=== PATIENT | female | born 1990 | race Asian ===

== ENCOUNTER 2023-09-27 08:55 | Outpatient (AMB) | payer OTHER, SELFPAY ==
--- NOTE | 2023-09-27 08:56 | A.OFFPC_ITS ---
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 Accompanied by: Self / Same As Patient Allergies No Known Allergies Allergy (Verified 09/27/23 09:12) Medication List - Last Reconciled 09/27/23 by Dank Jones MD No Known Home Meds Tobacco use date assessed: 09/27/23 Dental Screening Dental Screen Date: 09/27/23 Did you have a dental visit in the last 12 months?: No Did you have a dental problem in the last 6 months where you did not have access to dental care?: No Was dental information given to patient?: No HPI New patient- Establish Care HPI Details Patient comes in today for her annual physical examination and to establish care - is a new patient to the practice Patient states that she feels fatigued often lately Relates (+) Hx hypothyroidism - states that she has not taken any Rx for her thyroid in over a year now, and the last time she did was when she was still living in [place] about 2 years ago Also relates (+) recurrent whitish vaginal discharge recently; denies any vaginal bleeding and states that her menstrual periods have been regular She also has not seen a software quality assurance specialist and has 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 had 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 in a few years now States that she started experiencing some cough/cold symptoms last week and presently still has on and off symptoms of productive cough (coughs up whitish to yellowish phlegm at times), nasal and sinus congestion and mild sore throat She denies any fever or chills; denies any headaches or dizziness States that she tested herself for COVID a few days ago and she came out negative Adds that she also has had a recurrent and itchy rash over the back of her neck at the (occipital) hair line - states that she's had this for a few years now and has tried several OTC eczema cream / lotion without any significant improvement She denies any chest pains, no SOB No nausea/vomiting, no abdominal pain No change in bowel habits noted She denies any acute urinary symptoms [facility] Medical History (Updated 09/27/23 @ 12:12 by Dank Jones MD) Atopic dermatitis Goiter Surgical History (Updated 09/27/23 @ 11:56 by Dank Jones MD) No pertinent past surgical history Social History Housing: Apartment Patient Tobacco Use Status: Never used Tobacco e-Cigarette/Vaping Use: Never Used service: No Current occupational status: employed Current occupational exposures/hazards: No Cognitive needs: No Hearing needs: No Vision needs: No Questionnaire PHQ-9 Over the last 2 weeks, how often have you been bothered by any of the following problems? 1. Little interest or pleasure in doing things: not at all 2. Feeling down, depressed, or hopeless: not at all 3. Trouble falling or staying asleep, or sleeping too much: not at all 4. Feeling tired or having little energy: not at all 5. Poor appetite or overeating: not at all 6. Feeling bad about yourself - or that you are a failure or have let yourself or your family down: not at all 7. Trouble concentrating on things, such as reading the newspaper or watching television: not at all 8. Moving or speaking so slowly that other people could have noticed. Or the opposite - being so fidgety or restless that you have been moving around a lot more than usual: not at all 9. Thoughts that you would be better off or of hurting yourself in some way: not at all Total score: 0 Depression Screening Interpretation: Negative Depression Screening Done: Yes [id number] - PHQ-9 Billing: Yes Source: Developed by Drs. Rubio Ge, Joan Koehler, Mark Wilson and colleagues, with an educational alanis from [employer]. Thrive Questionnaire Date Thrive assessed: 09/27/23 I am a: Patient What is your living situation today?: I have a steady place to live Within the past 12 months, did the food you bought not last and you didn't have the money to get more?: Never true Within the past 12 months, did you worry whether your food would run out before you got money to buy more?: Never true Do you have trouble paying for medicines?: No Do you have trouble getting transportation to medical appointments?: No Do you have trouble paying your heating and electricity bill?: No Do you have trouble taking care of your child, family member or friend?: No Do you have trouble with day-to-day activities such as bathing, preparing meals, shopping, managing finances, etc.?: No Are you currently unemployed and looking for a job?: No Are you interested in more education?: No Please select the resources that you would like help with: None Currently or been in a relationship where the following occur: no concerns reported THRIVE Score: 0 AUDIT C Alcohol Use Questionnaire (AUDIT-C) 1. How often do you have a drink containing alcohol?: Monthly or less 2. How many drinks containing alcohol do you have on a typical day when you are drinking?: 1 or 2 3. How often do you have six or more drinks on one occasion?: Never Total Score: 1 Score Reviewed/Action Taken: Yes BANG-7 AMB Questionnaire BANG-7 Date BANG - 7 assessed: 09/27/23 Feeling nervous, anxious, or on edge: 0 = Not at all Not being able to stop or control worryin = Not at all Worrying too much about different things: 0 = Not at all Trouble relaxin = Not at all Being so restless that it is hard to sit still: 0 = Not at all Becoming easily annoyed or irritable: 0 = Not at all Feeling afraid as if something awful might happen: 0 = Not at all Total BANG-7 score (0-4 normal; 5-9 mild; 10-14 moderate; 15-21 severe): 0 Source: Developed by Drs. Rubio Ge, Joan Koehler, Mark Wilson and colleagues, with an educational alanis from [employer]. Review of Systems Const Denies chills, Reports fatigue (increased), Denies fever(s), Denies headache(s) and Denies malaise Eyes Denies blurry vision, Denies change in vision, Denies irritation and Denies itchy eyes ENT Denies dysphagia, Denies dizziness, Denies otalgia, Denies headache(s), Reports nasal congestion, Denies neck pain, Denies odynophagia, Denies sinus pain and Denies sore throat Card Denies chest pain, Denies rapid heart rate, Denies irregular heart rhythm, Denies palpitations and Denies dyspnea Resp Reports chest congestion (mild), Reports cough (on and off - coughs up whitish to yellowish phlegm at times), Denies pain on inspiration, Denies pain with cough, Denies dyspnea and Denies wheezing GI Denies abdominal pain, Denies bloating, Denies constipation, Denies dysphagia, Denies heartburn, Denies diarrhea, Denies nausea, Denies odynophagia and Denies vomiting Denies abnormal menses, Denies hematuria, Denies urinary frequency, Denies dysuria, Denies urinary incontinence, Denies urinary urgency, Reports vaginal discharge (whitish discharge - recurrent) and Denies vaginal pruritus Musc Denies back pain, Denies arthralgias, Denies joint swelling, Denies muscle weakness and Denies neck pain Skin/Breast Denies breast pain, Denies breast mass, Denies change in pigmentation, Denies lesions, Reports rash (recurrent itchy rash over the back of neck along the hairline) and Denies unusual bruising Neuro Denies dizziness, Denies headache(s) and Denies paresthesias Psych Denies anxiety and Denies depression Endo Reports fatigue (increased) and Denies palpitations Noé/Lymph Denies easy bruising Aller/Immun Denies itchy eyes and Denies wheezing Physical exam (Primary Care) Vital Signs: Last Vital Signs Pulse 75 09/27/23 08:59 BP 100/68 09/27/23 08:59 Pulse Ox 98 09/27/23 08:59 Oxygen Delivery Method Room Air 09/27/23 08:59 BMI result Body Mass Index 21.5 Tobacco/Smoking Status: Tobacco use Status Tobacco use date assessed 09/27/23 09/27/23 09:05 Patient Tobacco Use Status Never used Tobacco 09/27/23 09:05 e-Cigarette/Vaping Use Never Used 09/27/23 09:05 PHQ-9: PHQ-9 Score PHQ-9: Total score 0 09/27/23 09:15 Depression Screening Interpretation: Negative Thrive Assessment: Date of Thrive Assessment Date Thrive assessed 09/27/23 09/27/23 09:05 Currently or been in a relationship where the following occur: no concerns reported Const General: no acute distress, alert and awake Orientation/consciousness: patient oriented x3 HENMT Head: Yes normocephalic and Yes atraumatic Ears: external ears normal, TM's normal bilaterally and EAC's normal General nose exam: No nasal discharge present Face and sinus: Yes normal facial exam and Yes sinuses nontender Teeth and gingiva: dentition normal Throat: Yes tonsils normal (no TP congestion) and Yes posterior oropharynx abnormal ((+) mild erythema of the posterior pharynx) Eyes Eyelids: Yes eyelids normal Conjunctivae: conjunctivae normal Pupils: Equal, round and reactive pupils present EOM: EOMs intact bilaterally Neck Neck: Yes no lymphadenopathy and Yes supple Thyroid: diffusely enlarged (bilaterally) and nontender Resp Auscultation: clear to auscultation bilaterally, no crackles, no rales, rhonchi (scattered ) throughout and no wheezes Cardio Rate: regular rate Rhythm: regular rhythm Heart sounds: no murmurs GI Palpation (GI): Soft to palpation, nontender and No hepatosplenomegaly present Auscultation: normal bowel sounds General: Yes no CVA tenderness Back/Spine/Pelvis Back: no CVA tenderness Thoracic/Lumbar Spine: thoracic and lumbar spine normal to inspection Skin Lesions: no lesions Rashes: rashes noted (recurrent rash at hairline over the back of her neck) Neuro General: patient oriented x3, moves all extremities, no focal motor deficits and CN's II-XI intact bilaterally Cranial nerves: Yes Equal, round and reactive pupils present Cognition (Neuro): normal cognition Gait exam (Neuro): Normal gait present Extrem General: Yes no clubbing, cyanosis or edema Assessment and Plan Assessment & Plan (1) Annual physical exam: Code(s): Z00.00 - Encounter for general adult medical examination without abnormal findings Plan: Check labs (2) Goiter: Code(s): E04.9 - Nontoxic goiter, unspecified Plan: Patient is advised that based on the information she has provided, she most likely has hypothyroidism Will send her to check her TFTs KAMRAN and depending on her results, will then go ahead and start her back on thyroid hormone supplements as appropriate Advised her that her thyroid gland is also diffusely enlarged on exam and she should get an updated US of her thyroid for further evaluation - US ordered Patient recalls having a thyroid US done years ago but thinks that it has been over 3 to 4 years now and recalls being advised that there were no concerning findings on her last sonogram (3) Atopic dermatitis: Code(s): L20.9 - Atopic dermatitis, unspecified Qualifiers: Atopic dermatitis type: unspecified Qualified Code(s): L20.9 - Atopic dermatitis, unspecified Plan: Advised that the rash on her scalp appears to be eczematous and will start her for now on a trial of Triamcinolone acetonide 0.1% lotion BID PRN Will consider referring her to dermatology for further evaluation and management if her rash does not respond to and clear up with topical steroids (4) Vaginal discharge: Code(s): N89.8 - Other specified noninflammatory disorders of vagina Plan: States that it has also been a few years now since she last had her gynecologic exam and pap smear done Will refer her to [facility] for both her vaginal discharge and her annual exam (5) Respiratory tract infection: Code(s): J98.8 - Other specified respiratory disorders Plan: Discussed that she most likely has a viral respiratory tract infection and can continue taking OTC cough/cold meds PRN for symptomatic relief As she is going to the lab to get her routine tests done, will also go ahead and have her get tested for the viral panel for confirmation Plan Follow up in 3 months Orders: Orders Vitamin D 25-OH Total Today E55.9 - Vitamin D deficiency, unspecified, Z00.00 - Encounter for general adult medical examination without abnormal findings Free T4 (Free Thyroxine) Today E03.9 - Hypothyroidism, unspecified US thyroid Today E04.9 - Nontoxic goiter, unspecified Complete Blood Count Auto Diff Today D64.9 - Anemia, unspecified, Z00.00 - Encounter for general adult medical examination without abnormal findings Comprehensive [place]. 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
[2023-09-27 08:59] VITALS: BP 100/68; PULSE 75; O2SAT 98; BMI 21.5
== END 2023-09-27 09:53 | disposition home or self-care (01) ==
PROVIDERS: PCP Internal Medicine; Visit Provider Internal Medicine
DX: Z00.00 Encounter for general adult medical examination without abnormal findings (principal); E04.9 Nontoxic goiter, unspecified; L20.9 Atopic dermatitis, unspecified; N89.8 Other specified noninflammatory disorders of vagina; J98.8 Other specified respiratory disorders
CPT/HCPCS: 99385

== ENCOUNTER 2023-09-27 10:01 | Outpatient (REF) | payer OTHER, SELFPAY ==
[2023-09-27 10:33] LABS: MANUAL DIFF FLAG NO
[2023-09-27 11:13] LABS: Influenza A PCR NEGATIVE (Negative); Influenza B PCR NEGATIVE (Negative); Resp Syncy Virus RNA Qual PCR NEGATIVE (Negative); SARS COV2 PCR INHOUSE NEGATIVE (Negative)
[2023-09-27 11:29] LABS: Basophils Absolute Auto 0.1 X10*3/uL (0.0-0.2); Basophils Percent Auto 0.8 % (0-2); Eosinophils Absolute Auto 0.2 X10*3/uL (0.0-0.4); Eosinophils Percent Auto 2.1 % (0-4); Hematocrit 38.6 % (37.0-47.0); Imm Gran Abs Auto 0.13 X10*3/uL (0.00-0.03); Imm Gran Pct Auto 1.5 % (0.0-0.4); Lymphocytes Percent Auto 22.8 % (20-40); Mean Corpuscular HGB Conc 33.7 g/dl (31.0-35.0); Mean Corpuscular Volume 89.1 fL (80.0-98.0); Mean Platelet Volume 9.7 fL (9.4-12.3); Monocytes Absolute Auto 0.5 X10*3/uL (0.1-1.2); Monocytes Percent Auto 5.7 % (2-11); Neutrophils Absolute Auto 5.8 x10*3/uL (2.0-8.3); Neutrophils Percent Auto 67.1 % (45-73); Platelet Count 287 X10*3/uL (160-400); Red Blood Count 4.33 X10*6/uL (4.20-5.50); Red Cell Distribution Width 11.2 % (11.0-16.0); White Blood Count 8.6 X10*3/uL (4.8-10.8)
[2023-09-27 12:10] LABS: Appearance Urine Clear; Color Urine Yellow; Glucose Urine UA Negative (Negative); Leukocyte Esterase Urine Small (1+) (Negative); Nitrite Urine Negative (Negative); Specific Gravity - Urine <= 1.005 (1.005-1.025); UMIC TRIGGER UACC YES; Urine Blood Negative (Negative); Urine Ketones Negative (Negative); Urine Protein Negative (Neg-Trace)
[2023-09-27 12:17] LABS: Bacteria Urine None Seen (None Seen); Hyaline Casts Urine 0-2 /LPF (0-2); RBC Urine 0-2 /HPF (0-2); UACC Culture Trigger YES
[2023-09-27 12:27] LABS: Alanine Aminotransferase 22 U/L (0-31); Albumin Level 4.1 g/dL (3.5-5.0); Alkaline Phosphatase 83 U/L (39-117); Anion Gap 13 (12-20); Aspartate Amino Transferase 26 U/L (5-31); Bilirubin Total 0.5 mg/dL (0.0-1.0); Blood Urea Nitrogen 8 mg/dL (9-16); Calcium 9.1 mg/dL (8.4-10.2); Carbon Dioxide 30 mmol/L (22-29); Chloride 102 mmol/L (96-108); Cholesterol 169 mg/dL (<200); Estimated Glomerular Filt Rate > 60; Glucose Fasting 90 mg/dL (60-99); HDL Cholesterol 47 mg/dL (>40); LDL Cholesterol Calculated 112 mg/dL (<100); Potassium 3.8 mmol/L (3.3-5.1); Sodium 141 mmol/L (135-145); Total Protein 7.5 g/dL (6.5-8.0); Triglycerides 52 mg/dL (<150)
[2023-09-27 12:29] LABS: Free T4 (Free Thyroxine) 1.26 ng/dL (0.71-1.85); Thyroid Stimulating Hormone 1.41 uIU/mL (0.32-4.0); Vitamin D 25-OH Total 37.3 ng/mL (>30)
== END 2023-09-27 10:02 | disposition home or self-care (01) ==
LOC: HO.LAB 10:01
PROVIDERS: PCP Internal Medicine; Visit Provider Internal Medicine
DX: Z00.00 Encounter for general adult medical examination without abnormal findings (principal); E78.00 Pure hypercholesterolemia, unspecified; J98.8 Other specified respiratory disorders; E55.9 Vitamin D deficiency, unspecified; E03.9 Hypothyroidism, unspecified; D64.9 Anemia, unspecified; R30.0 Dysuria
CPT/HCPCS: 0241U; 80053; 80061; 81001; 81003; 82306; 84439; 84443; 85025; 87086

== ENCOUNTER 2023-10-16 09:11 | Outpatient (REF) | payer OTHER, SELFPAY ==
--- NOTE | ~2023-10-16 | US_ITS ---
EXAMINATION: US THYROID CLINICAL INFORMATION: Nontoxic goiter, unspecified. COMPARISON: None available. TECHNIQUE: Linear transducer yates-scale and color Doppler examination with attention to the region of the thyroid. FINDINGS: SIZE: Measurements of the thyroid lobes and nodules are given in sagittal, anteroposterior and transverse dimensions respectively. Right Thyroid Lobe: 5.8 x 1.5 x 2.3 cm, volume 10.5 mL. Parenchyma: The gland echotexture is heterogeneous. Thyroid vascularity is normal. Left Thyroid Lobe: 5.2 x 1.2 x 2 cm, volume 6.5 mL. Parenchyma: The gland echotexture is heterogeneous. Thyroid vascularity is normal. Isthmus: 0.3 cm in maximum AP dimension. Estimated total number of nodules greater than or equal to 1 cm: 0. Supervisor Of Way nodules are described as follows: 1. Location: Left mid. Size: 0.5 x 0.3 x 0.2 cm, volume 0.02 mL. Nodule characteristics: Composition: Solid (2). Echogenicity: Hypoechoic (2). Shape: Not taller than wide (0). Margins: Ill-defined (0). Echogenic Foci: None (0). ACR TI-RADS total points: 4 ACR TI-RADS category: 4 2. Location: Left mid. Size: 0.3 x 0.3 x 0.2 cm, volume 0.01 mL. Nodule characteristics: Composition: Mixed cystic and solid (1). Echogenicity: Hypoechoic (2). Shape: Not taller than wide (0). Margins: Ill-defined (0). Echogenic Foci: None (0). ACR TI-RADS total points: 3 ACR TI-RADS category: 3 3. Location: Right mid. Size: 0.3 x 0.3 x 0.2 cm, volume 0.01 mL. Nodule characteristics: Composition: Solid (2). Echogenicity: Hypoechoic (2). Shape: Not taller than wide (0). Margins: Ill-defined (0). Echogenic Foci: None (0). ACR TI-RADS total points: 4 ACR TI-RADS category: 4 NODES: No lymphadenopathy is seen in the tissue surrounding the thyroid gland. US/US thyroid IMPRESSION: Diffusely heterogeneous, hypervascular thyroid gland. Multiple small hypoechoic areas within a heterogeneous thyroid gland, some of which may represent thyroid heterogeneity rather than nodules. A 0.5 cm left TR4 thyroid nodule. ACR TI-RADS RECOMMENDATION REFERENCE: Ultrasound-guided fine-needle aspiration, followup ultrasound, no further follow up. * TR1 (0 point) and TR2 (2 points): No FNA or follow up. * TR3 (3 points): FNA if more than or equal to 2.5 cm in maximum dimension, followup ultrasound in 1, 3 and 5 years if 1.5 to 2.4 cm in maximum dimension. * TR4 (4-6 points): FNA if more than or equal to 1.5 cm in maximum dimension, followup ultrasound in 1, 2, 3 and 5 years if 1 to 1.4 cm in maximum dimension. * TR5 (more than or equal to 7 points): FNA if more than or equal to 1 cm in maximum dimension, followup ultrasound every year for 5 years if 0.5 to 0.9 cm in maximum dimension. * TR3, TR4 or TR5 nodules that are below the size threshold for followup receive no follow up.
== END 2023-10-16 09:12 | disposition home or self-care (01) ==
LOC: HO.US 09:11
PROVIDERS: PCP Internal Medicine; Visit Provider Internal Medicine
DX: E04.9 Nontoxic goiter, unspecified (principal)
CPT/HCPCS: 76536

== ENCOUNTER 2023-12-05 08:19 | Outpatient (REF) | payer OTHER, SELFPAY ==
[2023-12-13 23:29] LABS: HPV mRNA E6/E7 rflx Not Detected (Not Detected)
== END 2023-12-05 08:20 | disposition home or self-care (01) ==
LOC: HO.LNP 08:19
PROVIDERS: PCP Internal Medicine; Visit Provider Advanced Practice Midwife
DX: Z01.419 Encounter for gynecological examination (general) (routine) without abnormal findings (principal); Z11.51 Encounter for screening for human papillomavirus (HPV)
CPT/HCPCS: 87624; 88142; 99385

== ENCOUNTER 2023-12-05 08:19 | Outpatient (AMB) | payer OTHER, SELFPAY ==
--- NOTE | 2023-12-05 08:28 | MHC.OFFVIS ---
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 Doing well with no concerns: White discharge and itching. She tries to eat healthy and stays active with exercise. She reports irregular menses for years, spacing 5-6 weeks, lasting x4d, heavier 1-2d. Currently is sexually active, alf monogamous. STI screening offered; she accepts. Declines blood work. Using condoms. Not interested in BC. She feels safe at home. Denies family history of breast, ovarian or colon cancer. Last pap smear 2021, negative. Records not available. 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 Current occupational exposures/hazards: No Sexual orientation: Straight/Heterosexual Gender identity: Female Cognitive needs: No Hearing needs: No Vision needs: No Female Reproductive History Menstrual Duration of menses: 3-5 days Date of last menstrual period: 11/26/23 control method: condoms Total pregnancies: 2 Full term: 2 Number of Living Children: 2 Review of Systems Const All systems reviewed & are unremarkable except as noted in HPI and below Reports as per HPI Eyes Reports no additional complaints ENT Reports no additional complaints Card Reports no additional complaints Resp Reports no additional complaints GI Reports as per HPI and Reports no additional complaints Reports as per HPI Musc Reports no additional complaints Skin/Breast Reports as per HPI Neuro Reports no additional complaints Psych Reports no additional complaints Endo Reports no additional complaints Noé/Lymph Reports no additional complaints Aller/Immun Reports no additional complaints Physical Exam Vital Signs: Last Vital Signs BP 92/66 12/05/23 08:29 BMI result Body Mass Index 21.5 Const General: cooperative, healthy appearing, no acute distress, well developed and alert Orientation/consciousness: patient oriented x3 HEENT Head: Yes normal to inspection Eyes General: appearance normal, both eyes and all related structures Neck Neck: Yes normal visual inspection Thyroid: Thyroid normal Chest Chest palpation & inspection: normal inspection of the chest and other (no puckering, dimpling, peau de orange, retraction, discharge, masses) Breast/axilla inspection: normal inspection of the breasts Breast/axilla palpation: normal palpation of the breasts Resp Effort & Inspection: normal respiratory effort GI Inspection: Yes normal to inspection Palpation (GI): Soft to palpation Rectal Exam - Female: deferred General: Yes bladder normal to palpation External Female Exam: normal external appearance and normal appearance of the urethra Speculum Exam - Vagina: normal appearance of the vagina, normal palpation and normal vaginal discharge Speculum Exam - Cervix: normal appearance of the cervix and normal palpation Bimanual exam- vagina & uterus: normal bimanual exam, normal palpation, uterine size normal, bladder normal to palpation, normal palpation and non-tender Bimanual Exam- Adnexa, other: no masses Skin General skin exam: no rashes or lesions noted Rashes: no rashes Neuro General: patient oriented x3 Cognition (Neuro): normal cognition Extrem General: Yes normal to inspection Psych Attitude: cooperative Thought process: Normal thought process present Assessment & Plan Assessment & Plan (1) Encounter for well woman exam with routine gynecological exam: Code(s): Z01.419 - Encounter for gynecological examination (general) (routine) without abnormal findings Plan Discussed: Current recommendations for pap smears per ASCCP guidelines. Breast awareness and periodic breast exams. Maintain a healthy lifestyle including a well balanced diet and routine exercise. Patient verbalizes understanding and agrees to the plan of care. She was given opportunity to ask questions and all questions were answered to the best of my ability. 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 This note is constructed using voice recognition software. While every effort has been made to ensure accuracy, behavioral pediatrician errors may have been included. Orders: Orders CT NG by PCR Today N89.8 - Other specified noninflammatory disorders of vagina Pap Smear Today Z01.419 - Encounter for gynecological examination (general) (routine) without abnormal findings Bacterial Vaginosis Panel Today N89.8 - Other specified noninflammatory disorders of vagina Coding Level of Care Code New Pt Prev Care 18-39yr([id number] Diagnoses Encounter for well woman exam with routine gynecological exam Z01.419
[2023-12-05 08:29] VITALS: BP 92/66; BMI 21.5
== END 2023-12-05 09:10 | disposition home or self-care (01) ==
PROVIDERS: PCP Internal Medicine; Visit Provider Advanced Practice Midwife
DX: Z01.419 Encounter for gynecological examination (general) (routine) without abnormal findings (principal)
CPT/HCPCS: 99385

== ENCOUNTER 2023-12-05 09:00 | Outpatient (REF) | payer OTHER, SELFPAY ==
[2023-12-05 13:43] LABS: CT PCR NOT DETECTED (Not Detect.); NG PCR NOT DETECTED (Not Detect.)
[2023-12-06 13:03] LABS: BV Int Neg Control Negative (Negative); BV Int Pos Control Positive (Positive)
== END 2023-12-05 09:01 | disposition home or self-care (01) ==
LOC: HO.LAB 09:00
PROVIDERS: Visit Provider Advanced Practice Midwife
DX: N89.8 Other specified noninflammatory disorders of vagina (principal)
CPT/HCPCS: 0353U; 87480; 87510; 87660

== ENCOUNTER 2024-01-02 08:58 | Outpatient (AMB) | payer OTHER, SELFPAY ==
[2024-01-02 08:59] VITALS: BP 90/62; PULSE 62; O2SAT 98; BMI 22.1
--- NOTE | 2024-01-02 08:59 | MHC.PC.OV ---
Vital Signs 01/02/24 08:59 Height 5 ft 6 in Weight 137 lb 0.4 oz BMI 22.1 BP 90/62 Blood Pressure Location Lt brachial Position Sitting Pulse 62 Pulse Source Pulse Oximeter Pulse Oximetry (%) 98 Oxygen Delivery Method Room Air Intake Visit Reasons: hypothyroidism/goiter Econometrician Required: No Allergies No Known Allergies Allergy (Verified 01/02/24 09:14) Medication List - Last Reconciled 01/02/24 by Dank Jones MD metronidazole 500 mg PO BID 7 days miconazole nitrate 2% (Monistat 7) 1 appful vaginal BEDTIME 7 days triamcinolone acetonide 0.1% 1 appl topical BID Tobacco use date assessed: 01/02/24 Dental Screening Dental Screen Date: 09/27/23 HPI hypothyroidism/goiter HPI Details Patient comes in today for her follow up visit States that she feels okay but has been experiencing some persistent/residual chest congestion and recurrent cough for about a month now States that she is also coughing up some whitish to yellowish phlegm at times Recalls that she came down with a respiratory infection about a month or so ago and she just took some OTC cough/cold meds at the time to help relieve her symptoms Adds that she has been experiencing increased itching in her right ear (feels the itching is inside her ear) for the past couple of weeks She denies any fever or sore throat She denies any headaches or dizziness Denies any chest pains, no increased SOB No nausea/vomiting, no abdominal pain No change in bowel habits noted Adds that she still has the itchy rash over the back of her neck at the hairline - states that the previous Triamcinolone Rx we prescribed for her has not been helping in clearing up the rash Would like to go over the results of her labs and thyroid US done back in September 2023 FOR[facility]LY [facility] Medical History (Updated 01/02/24 @ 09:49 by Dank Jones MD) Multiple thyroid nodules Atopic dermatitis Goiter Surgical History No pertinent past surgical history Social History Household Members: Spouse and Children Housing: Apartment Alcohol intake: current Alcohol intake frequency: 0-2 drinks per day Patient Tobacco Use Status: Never used Tobacco e-Cigarette/Vaping Use: Never Used service: No Current occupational status: employed 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 Current occupational exposures/hazards: No Sexual orientation: Straight/Heterosexual Gender identity: Female Cognitive needs: No Hearing needs: No Vision needs: No Questionnaire Thrive Questionnaire Date Thrive assessed: 01/02/24 I am a: Patient What is your living situation today?: I have a steady place to live Within the past 12 months, did the food you bought not last and you didn't have the money to get more?: Never true Within the past 12 months, did you worry whether your food would run out before you got money to buy more?: Never true Do you have trouble paying for medicines?: No Do you have trouble getting transportation to medical appointments?: No Do you have trouble paying your heating and electricity bill?: No Do you have trouble taking care of your child, family member or friend?: No Do you have trouble with day-to-day activities such as bathing, preparing meals, shopping, managing finances, etc.?: No Are you currently unemployed and looking for a job?: No Are you interested in more education?: No Please select the resources that you would like help with: None Currently or been in a relationship where the following occur: no concerns reported THRIVE Score: 0 AUDIT C Alcohol Use Questionnaire (AUDIT-C) 1. How often do you have a drink containing alcohol?: Monthly or less 2. How many drinks containing alcohol do you have on a typical day when you are drinking?: 1 or 2 3. How often do you have six or more drinks on one occasion?: Never Total Score: 1 Score Reviewed/Action Taken: Yes BANG-7 AMB Questionnaire BANG-7 Date BANG - 7 assessed: 09/27/23 Source: Developed by Drs. Rubio Ge, Joan Koehler, Mark Wilson and colleagues, with an educational alanis from [employer]. Review of Systems Const Denies chills, Denies fatigue, Denies fever(s) and Denies headache(s) ENT Details: increased itching inside the right ear canal Reports as per HPI, Denies dysphagia, Denies dizziness, Denies otalgia, Denies headache(s), Denies neck pain, Denies odynophagia and Denies sore throat Card Denies chest pain, Denies palpitations and Denies dyspnea Resp Reports chest congestion (mild), Reports cough (recurrent; coughs up whitish to yellowish phlegm at times) and Denies dyspnea GI Denies abdominal pain, Denies constipation, Denies dysphagia, Denies heartburn, Denies diarrhea, Denies nausea, Denies odynophagia and Denies vomiting Denies difficulty voiding, Denies nocturia, Denies dysuria and Denies urinary urgency Musc Denies back pain and Denies neck pain Skin/Breast Reports rash (itchy scaling rash at the hairline over the back of the head/neck area) Neuro Denies dizziness and Denies headache(s) Endo Denies fatigue and Denies palpitations Physical exam (Primary Care) Vital Signs: Last Vital Signs Pulse 62 01/02/24 08:59 BP 90/62 01/02/24 08:59 Pulse Ox 98 01/02/24 08:59 Oxygen Delivery Method Room Air 01/02/24 08:59 BMI result Body Mass Index 22.1 Tobacco/Smoking Status: Tobacco use Status Tobacco use date assessed 01/02/24 01/02/24 09:06 Patient Tobacco Use Status Never used Tobacco 01/02/24 09:06 e-Cigarette/Vaping Use Never Used 01/02/24 09:06 Thrive Assessment: Date of Thrive Assessment Date Thrive assessed 01/02/24 01/02/24 09:06 Currently or been in a relationship where the following occur: no concerns reported Const General: no acute distress and alert HENMT Ears: TM's normal bilaterally, EAC's normal (left ear) and Abnormal EAC present erythema (with scaling rash and pruritus) on the right Throat: Yes posterior oropharynx normal and Yes tonsils normal (no TP congestion) Neck Neck: Yes no lymphadenopathy and Yes supple Thyroid: multiple palpable nodules bilaterally and nontender Resp Auscultation: no rales, rhonchi (occasional, bilaterally), no wheezes and bronchial breath sounds (occasiona) bilateral Cardio Rate: regular rate Rhythm: regular rhythm Heart sounds: no murmurs GI Palpation (GI): Soft to palpation and nontender Auscultation: normal bowel sounds General: Yes no CVA tenderness Back/Spine/Pelvis Back: no CVA tenderness Skin Rashes: rashes noted (at the hairline over the back of the head/neck area) Extrem General: Yes no clubbing, cyanosis or edema Results Reviewed Results Reviewed: Laboratory Tests 09/27/23 09/27/23 10:30 10:33 WBC 8.6 Hgb 13.0 Hct 38.6 Plt Count 287 Sodium 141 Potassium 3.8 Creatinine 0.66 Estimated GFR > 60 Fasting Glucose 90 Calcium 9.1 AST 26 ALT 22 Triglycerides 52 Cholesterol 169 LDL Cholesterol, Calc 112 H HDL Cholesterol 47 25-OH Vitamin D Total 37.3 TSH 1.41 Free T4 1.26 Ur Specific [place] <= 1.005 Urine Protein Negative Urine Glucose (UA) Negative Urine Blood Negative Urine Nitrite Negative Ur Leukocyte Esterase Small (1+) H Assessment and Plan Assessment & Plan (1) Multiple thyroid nodules: Code(s): E04.2 - Nontoxic multinodular goiter Plan: Results of her labs and thyroid US done back in September 2023 reviewed and discussed with patient She is reassured that her labs and TFTs are all within normal range Her thyroid US revealed (+) bilateral thyroid nodules and the recommendation is to repeat US in 1 year for surveillance but patient remains concerned as she feels (and has been advised by family and friends as well) that hey thyroid has gotten bigger over the past couple of years Will refer her to endocrinology for further evaluation and management; advised that we will see if they recommend Bx at this time or not (2) Atopic dermatitis: Code(s): L20.9 - Atopic dermatitis, unspecified Qualifiers: Atopic dermatitis type: unspecified Qualified Code(s): L20.9 - Atopic dermatitis, unspecified Plan: She was started previously on a trial of Triamcinolone acetonide 0.1% lotion BID PRN, which she states has not helped Will start her this time on Clobetasol 0.05% topical foam to apply to the rash BID Will again consider referring her to dermatology for further evaluation and management if her rash does not respond to and clear up with topical steroids (3) Bronchitis: Code(s): J40 - Bronchitis, not specified as acute or chronic Plan: Will start her on empiric Tx with Azithromycin QD x 5 days (4) Eczematoid otitis externa of right ear: Code(s): H60.541 - Acute eczematoid otitis externa, right ear Qualifiers: Chronicity: acute Qualified Code(s): H60.541 - Acute eczematoid otitis externa, right ear Plan: Will start her on Hydrocortisone-acetic acid otic solution 4 drops into the right ear TID x 7 days Plan To return in September 2024 for her next annual physical examination Patient is advised to get her follow up labs done about one week before her appt Orders: Orders Lipid Panel 09/20/24 E78.00 - Pure hypercholesterolemia, unspecified Vitamin D 25-OH Total 09/20/24 E55.9 - Vitamin D deficiency, unspecified UA CC w/rflx Micro + Cult 09/20/24 R30.0 - Dysuria Thyroid Stimulating Hormone 09/20/24 E04.9 - Nontoxic goiter, unspecified Complete Blood Count Auto Diff 09/20/24 D64.9 - Anemia, unspecified Comprehensive [place]. Panel Fast 09/20/24 E78.00 - Pure hypercholesterolemia, unspecified Free T4 (Free Thyroxine) 09/20/24 E04.9 - Nontoxic goiter, unspecified Referrals Endocrinology Referral E04.2 - Nontoxic multinodular goiter Medications: New clobetasol 0.05% apply to rash on scalp twice a day 1 appl topical BID 2 weeks 100 grams 0RF azithromycin take 500 mg today (day 1), then 250 mg for 4 days (days 2-5) PO 6 tabs 0RF hydrocortisone-acetic acid 1-2 % 4 drps otic (ear) right TID 7 days 10 mL 0RF Coding Level of Care Code Est Pt Level 4 (63491) Diagnoses Multiple thyroid nodules E04.2 Atopic dermatitis, unspecified type L20.9 Atopic dermatitis type: unspecified Bronchitis J40 Acute eczematoid otitis externa of right ear H60.541 Chronicity: acute
== END 2024-01-02 09:35 | disposition home or self-care (01) ==
PROVIDERS: PCP Internal Medicine; Visit Provider Internal Medicine
DX: E04.2 Nontoxic multinodular goiter (principal); L20.9 Atopic dermatitis, unspecified; J40 Bronchitis, not specified as acute or chronic; H60.541 Acute eczematoid otitis externa, right ear
CPT/HCPCS: 99214

== ENCOUNTER 2024-01-30 09:34 | Outpatient (AMB) | payer OTHER, SELFPAY ==
--- NOTE | 2024-01-30 09:41 | A.OFFVIS_ITS ---
Vital Signs 01/30/24 09:43 Height 5 ft 6 in Weight 137 lb BMI 22.1 BP 100/64 Intake Visit Reasons: vag irritation Intake Note: having white discharge and vaginal itching Fabricator Special Items Required: Yes Fabricator Special Items Language: Mandarin Icelandic Fabricator Special Items Name: Michelle [id number] Information Interpreted: non-clinical & clinical Machine Sander: Machine Sander Present (Aidyn) Allergies No Known Allergies Allergy (Verified 01/30/24 09:46) Is last menstrual period known: Yes Last menstrual period: 01/13/24 Post menopausal: No HPI Comments Details: Patient presents today with complaints of vaginal itching and irritation with discharge. She has a history of BV and yeast treated in November. She is wondering if drinking alcohol daily is causing this to happen, admits to 2 drinks after work to relax daily. She exercises in the a.m.. She denies any pelvic pain or urinary symptoms. Menses are regular, uses condom s for control. 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 occupational exposures/hazards: No Sexual orientation: Straight/Heterosexual Gender identity: Female Cognitive needs: No Hearing needs: No Vision needs: No Female Reproductive History Menstrual Age of Menarche: 14 Duration of menses: 3-5 days Date of last menstrual period: 01/13/24 Total pregnancies: 2 Full term: 2 Number of Living Children: 2 Date of last pap smear: 12/11/23 (negative) Review of Systems Const All systems reviewed & are unremarkable except as noted in HPI and below Physical Exam Vital Signs: Last Vital Signs BP 100/64 01/30/24 09:43 BMI result Body Mass Index 22.1 Const General: cooperative, healthy appearing and no acute distress Orientation/consciousness: patient oriented x3 GI Inspection: Yes normal to inspection Palpation (GI): Soft to palpation and Other GI palpation findings present (Nontender) Rectal Exam - Female: visual inspection normal Other: External erythema and mild edema General: Yes bladder normal to palpation External Female Exam: normal appearance of the urethra Speculum Exam - Vagina: normal appearance of the vagina, normal palpation, abnormal vaginal discharge (Thick yellow green clumpy) and erythematous Speculum Exam - Cervix: normal appearance of the cervix and normal palpation Bimanual exam- vagina & uterus: normal bimanual exam, normal palpation, uterine size normal, bladder normal to palpation, normal palpation, uterine shape normal and non-tender Bimanual Exam- Adnexa, other: normal adnexae Neuro General: patient oriented x3 Assessment & Plan Assessment & Plan (1) Vulvar irritation: Code(s): N90.89 - Other specified noninflammatory disorders of vulva and perineum (2) Vaginal yeast infection: Code(s): B37.31 - Acute candidiasis of vulva and vagina Plan Instructions: Clean with warm water, no soaps, scented products. Use a cool cloth to the area several times a day if swollen and/or uncomfortable. Wear loose, cotton underclothes, avoid tight outer clothing. Air when possible. No coitus until well healed. Complete all medications as prescribed. Await final pending results for any changes in the plan of care. Call the office if there is no improvement in 24-48hrs., or if worsening symptoms. Encouraged to stop using alcohol daily for coping mechanisms, review causes of stress and what she can help to control or improve, other modalities to cope including exercise, meditation, yoga, journaling, connecting with the nature in other people, deep breathing, getting enough sleep and other options. Next annual is scheduled for November of 2024. All of her questions and concerns were addressed to the best of my ability and shared decision making. She is agreeable to the plan of care. This note is constructed using voice recognition software. While every effort has been made to ensure accuracy, canceling and cutting control clerk errors may have been included. Orders: Orders Bacterial Vaginosis Panel Today N89.8 - Other specified noninflammatory disorders of vagina Medications: New clotrimazole-betamethasone 1-0.05 % apply externally a thin coat to the area 1 appl topical BID 45 grams 0RF itching 7 days fluconazole 150 mg PO ONCE 1 tab 0RF personal 1 day Coding Level of Care Code Est Pt Level 3 (18737) Diagnoses Vulvar irritation N90.89 Vaginal yeast infection B37.31
[2024-01-30 09:43] VITALS: BP 100/64; BMI 22.1
== END 2024-01-30 11:32 | disposition home or self-care (01) ==
PROVIDERS: PCP Internal Medicine; Visit Provider Advanced Practice Midwife
DX: N90.89 Other specified noninflammatory disorders of vulva and perineum (principal); B37.31 Acute candidiasis of vulva and vagina
CPT/HCPCS: 99213

== ENCOUNTER 2024-01-30 09:34 | Outpatient (REF) | payer OTHER, SELFPAY ==
[2024-01-30 15:31] LABS: Bacterial Vaginosis PCR NEGATIVE (Negative); Candida Group PCR DETECTED (Not Detect); Candida glab krusei PCR NOT DETECTED (Not Detect); Trichomonas vaginalis PCR NOT DETECTED (Not Detect)
== END 2024-01-30 09:35 | disposition home or self-care (01) ==
LOC: HO.LNP 09:34
PROVIDERS: PCP Internal Medicine; Visit Provider Advanced Practice Midwife
DX: N90.89 Other specified noninflammatory disorders of vulva and perineum (principal); B37.31 Acute candidiasis of vulva and vagina
CPT/HCPCS: 0352U; 99212

== ENCOUNTER 2024-10-08 09:09 | Outpatient (AMB) | payer OTHER, SELFPAY ==
--- NOTE | 2024-10-08 09:21 | MHC.PC.OV ---
Vital Signs 10/08/24 09:22 Height 5 ft 6 in Weight 146 lb 6 oz BMI 23.6 BP 100/62 Blood Pressure Location Lt brachial Position Sitting Pulse 59 Pulse Source Pulse Oximeter Pulse Oximetry (%) 99 Oxygen Delivery Method Room Air Intake Visit Reasons: Annual Exam Bulk Clerk Required: No Accompanied by: Self / Same As Patient Allergies No Known Allergies Allergy (Verified 10/08/24 09:54) Medication List - Last Reconciled 10/08/24 by Dank Jones MD clobetasol 0.05% 1 appl topical BID 2 weeks clotrimazole-betamethasone 1-0.05 % 1 appl topical BID 7 days hydrocortisone-acetic acid 1-2 % 4 drps otic (ear) right TID 7 days methimazole 5 mg PO DAILY triamcinolone acetonide 0.1% 1 appl topical BID Tobacco use date assessed: 10/08/24 Dental Screening Dental Screen Date: 10/08/24 Did you have a dental visit in the last 12 months?: No Did you have a dental problem in the last 6 months where you did not have access to dental care?: No Was dental information given to patient?: No HPI Annual Exam HPI Details Patient comes in today for her annual physical examination States that she currently feels okay She is now on Methimazole, presumably for hyperthyroidism/Graves disease She was referred to endocrinology at [facility] last year for further evaluation of her thyroid nodules but we have never received any correspondence from them at all with regards to patient's evaluation and treatment Patient currently denies any headaches or dizziness Denies any chest pains, no SOB No nausea/vomiting, no abdominal pain No change in bowel habits noted She denies any acute urinary symptoms States that she needs a few of her Rx refilled Adds that she has been experiencing increasing dryness and scaling of the heels on both of her feet over the past few months now and that her heels have beeen hurting at times lately, with some cracks noted over the thickened calloused portion of her heels She is up-to-date with her yearly gynecology exam and is scheduled for her next appointment with them in November 2024 [facility] Medical History (Updated 10/08/24 @ 12:45 by Dank Jones MD) Hyperthyroidism Multiple thyroid nodules Atopic dermatitis Goiter Surgical History No pertinent past surgical history Social History Household Members: Spouse and Children Housing: Apartment Alcohol intake: current Alcohol intake frequency: 0-2 drinks per day Patient Tobacco Use Status: Never used Tobacco e-Cigarette/Vaping Use: Never Used service: No Current occupational status: employed 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 1. Little interest or pleasure in doing things: not at all 2. Feeling down, depressed, or hopeless: not at all 3. Trouble falling or staying asleep, or sleeping too much: not at all 4. Feeling tired or having little energy: not at all 5. Poor appetite or overeating: not at all 6. Feeling bad about yourself - or that you are a failure or have let yourself or your family down: not at all 7. Trouble concentrating on things, such as reading the newspaper or watching television: not at all 8. Moving or speaking so slowly that other people could have noticed. Or the opposite - being so fidgety or restless that you have been moving around a lot more than usual: not at all 9. Thoughts that you would be better off or of hurting yourself in some way: not at all Total score: 0 Depression Screening Interpretation: Negative Depression Screening Done: Yes 77733 - PHQ-9 Billing: Yes Source: Developed by Drs. Rubio Ge, Joan Koehler, Mark Wilson and colleagues, with an educational alanis from [employer]. Thrive Questionnaire Date Thrive assessed: 10/08/24 I am a: Patient What is your living situation today?: I choose not to answer this question Within the past 12 months, did the food you bought not last and you didn't have the money to get more?: I choose not to answer this question Within the past 12 months, did you worry whether your food would run out before you got money to buy more?: I choose not to answer this question Do you have trouble paying for medicines?: I choose not to answer this question Do you have trouble getting transportation to medical appointments?: I choose not to answer this question Do you have trouble paying your heating and electricity bill?: I choose not to answer this question Do you have trouble taking care of your child, family member or friend?: I choose not to answer this question Do you have trouble with day-to-day activities such as bathing, preparing meals, shopping, managing finances, etc.?: I choose not to answer this question Are you currently unemployed and looking for a job?: I choose not to answer this question Are you interested in more education?: I choose not to answer this question Please select the resources that you would like help with: None Currently or been in a relationship where the following occur: I choose not to answer THRIVE Score: 0 AUDIT C Alcohol Use Questionnaire (AUDIT-C) 1. How often do you have a drink containing alcohol?: Monthly or less 2. How many drinks containing alcohol do you have on a typical day when you are drinking?: 1 or 2 3. How often do you have six or more drinks on one occasion?: Less than monthly Total Score: 2 Score Reviewed/Action Taken: Yes BANG-7 AMB Questionnaire BANG-7 Date BANG - 7 assessed: 10/08/24 Feeling nervous, anxious, or on edge: 0 = Not at all Not being able to stop or control worryin = Not at all Worrying too much about different things: 0 = Not at all Trouble relaxin = Not at all Being so restless that it is hard to sit still: 0 = Not at all Becoming easily annoyed or irritable: 0 = Not at all Feeling afraid as if something awful might happen: 0 = Not at all Total BANG-7 score (0-4 normal; 5-9 mild; 10-14 moderate; 15-21 severe): 0 Source: Developed by Drs. Rubio Ge, Joan Koehler, Mark Wilson and colleagues, with an educational alanis from [employer]. Review of Systems Const Denies chills, Denies fatigue, Denies fever(s), Denies headache(s) and Denies malaise Eyes Denies blurry vision, Denies change in vision, Denies irritation and Denies itchy eyes ENT Denies dysphagia, Denies dizziness, Denies otalgia (but (+) ear itching at times), Denies headache(s), Denies nasal congestion, Denies neck pain, Denies odynophagia, Denies sinus pain and Denies sore throat Card Denies chest pain, Denies rapid heart rate, Denies irregular heart rhythm, Denies palpitations and Denies dyspnea Resp Denies chest congestion, Denies cough, Denies dyspnea and Denies wheezing GI Denies abdominal pain, Denies bloating, Denies constipation, Denies dysphagia, Denies heartburn, Denies diarrhea, Denies nausea, Denies odynophagia and Denies vomiting Denies hematuria, Denies urinary frequency, Denies dysuria, Denies urinary incontinence and Denies urinary urgency Musc Denies back pain, Denies arthralgias, Denies joint swelling, Denies muscle weakness and Denies neck pain Skin/Breast Denies breast pain, Denies breast mass, Denies change in pigmentation, Reports dry skin (especially over both heels - increased lately), Denies lesions, Reports rash (recurrent) and Denies unusual bruising Neuro Denies dizziness, Denies headache(s) and Denies paresthesias Psych Denies anxiety and Denies depression Endo Denies fatigue and Denies palpitations Noé/Lymph Denies easy bruising Aller/Immun Denies itchy eyes and Denies wheezing Physical exam (Primary Care) Vital Signs: Last Vital Signs Pulse 59 10/08/24 09:22 BP 100/62 10/08/24 09:22 Pulse Ox 99 10/08/24 09:22 Oxygen Delivery Method Room Air 10/08/24 09:22 BMI result Body Mass Index 23.6 Tobacco/Smoking Status: Tobacco use Status Tobacco use date assessed 10/08/24 10/08/24 09:28 Patient Tobacco Use Status Never used Tobacco 10/08/24 09:28 e-Cigarette/Vaping Use Never Used 10/08/24 09:28 PHQ-9: PHQ-9 Score PHQ-9: Total score 0 10/08/24 12:07 Depression Screening Interpretation: Negative Thrive Assessment: Date of Thrive Assessment Date Thrive assessed 10/08/24 10/08/24 09:28 Currently or been in a relationship where the following occur: I choose not to answer Const General: no acute distress, alert and awake Orientation/consciousness: patient oriented x3 HENMT Head: Yes normocephalic and Yes atraumatic Ears: external ears normal, TM's normal bilaterally and EAC's normal General nose exam: No nasal discharge present Face and sinus: Yes normal facial exam and Yes sinuses nontender Teeth and gingiva: dentition normal Throat: Yes posterior oropharynx normal and Yes tonsils normal (no TP congestion) Eyes Eyelids: Yes eyelids normal Conjunctivae: conjunctivae normal Pupils: Equal, round and reactive pupils present EOM: EOMs intact bilaterally Neck Neck: Yes supple and No lymphadenopathy Thyroid: diffusely enlarged, multiple palpable nodules bilaterally and nontender Resp Auscultation: clear to auscultation bilaterally, no rales and no wheezes Cardio Rate: regular rate Rhythm: regular rhythm Heart sounds: no murmurs GI Palpation (GI): Soft to palpation, nontender and No hepatosplenomegaly present Auscultation: normal bowel sounds General: Yes no CVA tenderness Back/Spine/Pelvis Back: no CVA tenderness Thoracic/Lumbar Spine: thoracic and lumbar spine normal to inspection Skin Lesions: no lesions Rashes: no rashes Neuro General: patient oriented x3, moves all extremities, no focal motor deficits and CN's II-XI intact bilaterally Cranial nerves: Yes Equal, round and reactive pupils present Cognition (Neuro): normal cognition Gait exam (Neuro): Normal gait present Extrem Other: (+) keratoderma with thickened skin over the heels of both feet General: Yes no clubbing, cyanosis or edema Coding Level of Care Code Est Pt Prev Care 18-39y(83218) Diagnoses Annual physical exam Z00.00 Hyperthyroidism E05.90 Atopic dermatitis, unspecified type L20.9 Atopic dermatitis type: unspecified Acute eczematoid otitis externa of right ear H60.541 Chronicity: acute Keratoderma of foot, acquired L85.1 Additional Codes PHQ-9 - 40393 - PHQ-9 Billing: Yes ([id number]) Assessment & Plan Assessment & Plan (1) Annual physical exam: Code(s): Z00.00 - Encounter for general adult medical examination without abnormal findings Category: Medical Plan: Check labs Patient is up-to-date with her yearly gynecology exam and pap smear and her next gynecology appointment is in November 2024 (2) Hyperthyroidism: Code(s): E05.90 - Thyrotoxicosis, unspecified without thyrotoxic crisis or storm Category: Medical Plan: Continue Methimazole 5 mg QD She is currently seeing endocrinology at [facility] for continuing management of her Graves disease She was referred to [facility] last year but we have not received any correspondence from them so far - we will have office request for these for our review and for documentation (3) Atopic dermatitis: Code(s): L20.9 - Atopic dermatitis, unspecified Category: Medical Qualifiers: Atopic dermatitis type: unspecified Qualified Code(s): L20.9 - Atopic dermatitis, unspecified Plan: Continue Clobetasol 0.05% cream BID PRN - Rx refilled (4) Eczematoid otitis externa of right ear: Code(s): H60.541 - Acute eczematoid otitis externa, right ear Category: Medical Qualifiers: Chronicity: acute Qualified Code(s): H60.541 - Acute eczematoid otitis externa, right ear Plan: Continue Vosol HC 4 drops into the affected ear TID PRN - Rx refilled (5) Keratoderma of foot, acquired: Comment: worse over both heels Code(s): L85.1 - Acquired keratosis [keratoderma] palmaris et plantaris Category: Medical Plan: Will start patient on Lac-Hydrin 5% lotion to apply to heels of both feet BID PRN Plan Follow up in 6 months Orders: Orders Complete Blood Count Auto Diff Today D64.9 - Anemia, unspecified, Z00.00 - Encounter for general adult medical examination without abnormal findings Lipid Panel Today E78.00 - Pure hypercholesterolemia, unspecified, Z00.00 - Encounter for general adult medical examination without abnormal findings Comprehensive [place]. Panel Fast Today E78.00 - Pure hypercholesterolemia, unspecified, Z00.00 - Encounter for general adult medical examination without abnormal findings Free T4 (Free Thyroxine) Today E03.9 - Hypothyroidism, unspecified, Z00.00 - Encounter for general adult medical examination without abnormal findings UA CC w/rflx Micro + Cult Today R30.0 - Dysuria, Z00.00 - Encounter for general adult medical examination without abnormal findings Vitamin D 25-OH Total Today E55.9 - Vitamin D deficiency, unspecified, Z00.00 - Encounter for general adult medical examination without abnormal findings Thyroid Stimulating Hormone Today E03.9 - Hypothyroidism, unspecified, Z00.00 - Encounter for general adult medical examination without abnormal findings Medications: New ammonium lactate 5% (Lac-Hydrin Five) Apply to dry skin on the heels of both feet BID as needed 1 appl topical BID PRN 226 grams 1RF dry skin Refilled clobetasol 0.05% apply to rash on scalp twice a day 1 appl topical BID 100 grams 0RF 2 weeks triamcinolone acetonide 0.1% 1 appl topical BID 60 mL 2RF hydrocortisone-acetic acid 1-2 % 4 drps otic (ear) right TID 10 mL 0RF 7 days
[2024-10-08 09:22] VITALS: BP 100/62; PULSE 59; O2SAT 99; BMI 23.6
--- OUTSIDE RECORDS SUMMARY | 2024-10-08 10:05 | XMS_ITS | Encounter Summary ---
Author Organization [facility] Address [address] [place] [address] Care Team Providers Care Dock Operations Supervisor Name Role Phone Dank Jones MD Primary Care Provider + [phone] Reason for Referral * Imaging (Routine) - Pending Review Specialty Diagnoses / Procedures Referred By Ian t Referred To Contact Radiology Diagnoses Multiple thyroid nodules Procedures US Head Neck Soft Tissue Rosemary Chaney PA [address] [place] [id number] Phone: tel: fax: [facility] Referral ID Status Reason Start Date Expiration Date V isits Requested Visits Authorized [id number] Pending Review 06/16/2024 06/16/2025 1 1 Reason for Visit * Imaging (Routine) - Pending Review Specialty Diagnoses / Procedures Referred By Ian sterling Referred To Contact Radiology Diagnoses Multiple thyroid nodules Procedures US Head Neck Soft Tissue Rosemary Chaney PA [address] [place] [address] Phone: tel: fax: [facility] Referral ID Status Reason Start Date Expiration Date V isits Requested Visits Authorized [id number] Pending Review 06/16/2024 06/16/2025 1 1 Encounter Details Date Type Department Care Team (Latest Contact Info) Description 09/16/2024 9:15 AM EST - 09/16/2024 11:59 PM EST Hospital Encounter Radiology Department - [address] [address] Multiple thyroid nodules Discharge Disposition: Home or Self Care Social History Tobacco Use Types Packs/Day Years Used Date Smoking Tobacco: Never Smokeless Tobacco: Never Comments Unknown Sex and Gender Information Value Date Recorded Sex Assigned at Not on file Legal Sex Female 11:02 AM EDT Gender Identity Not on file Sexual Orientation Not on file documented as of this encounter Medications at Time of Discharge methIMAzole (TAPAZOLE) 5 mg tablet TAKE 1 TABLET BY MOUTH EVERY DAY 30 tablet 2 08/25/2024 documented as of this encounter Discharge Disposition Disposition Code Departure Means Destination Home or Self Care documented in this encounter Plan of Treatment Upcoming Encounters Date Type Department Care Team (Late st Contact Info) Description 10/22/2024 9:40 AM EST Office Visit Endocrinology - [place] [address] [place] [address] Rosemary Chaney PA [address] [place] [address] documented as of this encounter Procedures Procedure Name Priority Date/Time Associated Diagnosis Comments US HEAD NECK SOFT TISSUE Routine 09/16/2024 9:30 AM EST Multiple thyroid nodules documented in this encounter Results * US Head Neck Soft Tissue (09/16/2024 9:30 AM EST) Anatomical Region Laterality Modality Head and Neck Ultrasound 09/16/2024 9:58 AM EST Impressions 09/16/2024 10:03 AM EST Heterogeneous thyroid gland without a definite thyroid nodule. POS - [id number] -------- FINAL REPORT -------- Dictated By: Shalini Burns Dictated Date: 09/16/2024 09:58 ET Assigned Physician: Shalini Burns Reviewed and Electronically Signed By: Shalini Burns Signed Date: 09/16/2024 10:03 ET Workstation ID: [id number] Transcribed By: Self Edit Transcribed Date: 09/16/2024 09:58 ET Narrative 09/16/2024 10:03 AM EST EXAM: Thyroid ultrasound HISTORY: Thyroid nodules. COMPARISON: None FINDINGS: Thyroid gland is prominent: right lobe measures 5.3 x 1.3 x 2.5 cm, left lobe measures 5.1 x 1.1 x 2.2 cm, and the isthmus measures 0.3 cm in thickness. ??Thyroid parenchyma is heterogeneous without hypervascularity on color Doppler. ??No definite discrete nodule identified. Procedure Note Shalini Burns MD - 09/16/2024 EXAM: Thyroid ultrasound HISTORY: Thyroid nodules. COMPARISON: None FINDINGS: Thyroid gland is prominent: right lobe measures 5.3 x 1.3 x 2.5 cm, leftlobe measures 5.1 x 1.1 x 2.2 cm, and the isthmus measures 0.3 cm inthickness. Thyroid parenchyma is heterogeneous without hypervascularityon color Doppler. No definite discrete nodule identified. IMPRESSION: Heterogeneous thyroid gland without a definite thyroid nodule. POS - [id number] -------- FINAL REPORT -------- Dictated By: Shalini Burns Dictated Date: 09/16/2024 09:58 ET Assigned Physician: Shalini Burns Reviewed and Electronically Signed By: Shalini Burns Signed Date: 09/16/2024 10:03 ET Workstation ID: [id number] Transcribed By: Self Edit Transcribed Date: 09/16/2024 09:58 ET us Rosemary SERNA IMG US PROCEDURES Final Result documented in this encounter Visit Diagnoses Diagnosis Multiple thyroid nodules Nontoxic multinodular goiter documented in this encounter Care Teams Dock Operations Supervisor Relationship Specialty Start Date End Date Dank Jones MD [address] [place] [address] Dr [address] [place] PCP - General 01/03/24 documented as of this encounter
--- OUTSIDE RECORDS SUMMARY | 2024-10-08 10:05 | XMS_ITS | Clinical Summary ---
Author Organization [address] Address [address] [place] [address] Phone Care Team Providers Care Wedding Florist Name Role Phone Dank Jones MD Primary Care Provider [phone] Allergies No known active allergies Medications methIMAzole (TAPAZOLE) 5 mg tablet TAKE 1 TABLET BY MOUTH EVERY DAY 30 tablet 2 08/25/2024 Active Encounters Date Type Department Care Team Description 09/16/2024 9:15 AM EST - 09/16/2024 11:59 PM EST Hospital Encounter Radiology Department - [address] [phone] Multiple thyroid nodules Discharge Disposition: Home or Self Care from Last 3 Months Social History Tobacco Use Types Packs/Day Years Used Date Smoking Tobacco: Never Smokeless Tobacco: Never Comments Unknown Sex and Gender Information Value Date Recorded Sex Assigned at Not on file Legal Sex Female 11:02 AM EDT Gender Identity Not on file Sexual Orientation Not on file Obstetrics History Last Filed Vital Signs Vital Sign Reading Time Taken Comments Blood Pressure 100/60 05/30/2024 1:06 PM EDT Pulse 72 05/30/2024 1:06 PM EDT Temperature - - Respiratory Rate - - Oxygen Saturation - - Inhaled Oxygen Concentration - - Weight 59.4 kg (131 lb) 05/30/2024 1:06 PM EDT Height 167.6 cm (5' 6 ) 05/30/2024 1:06 PM EDT Body Mass Index 21.14 05/30/2024 1:06 PM EDT Plan of Treatment Upcoming Encounters Date Type Department Care Team (Late st Contact Info) Description 10/22/2024 9:40 AM EST Office Visit Endocrinology - [place] [address] [place], [place] [phone] Rosemary Chaney PA [address] [place] [address] Health Maintenance Due Date Last Done Comments DTaP,Tdap,and Td Vaccines (1 - Tdap) 2008 Hepatitis B Vaccines (1 of 3 - 19+ 3-dose series) 2008 Cervical Cancer Screening: P ap Smear 2010 Depression Screening 03/21/2024 HIV Screening 03/21/2024 Hepatitis C Screening 03/21/2024 Social Influencers of Health Screening 03/21/2024 COVID-19 Vaccine (2023-2 5 season) 2024 Influenza Vaccine (#1) 2024 HIB Vaccines Aged Out No longer eligi ble based on patient's age to complete this topic HPV Vaccines Aged Out No longer eligi ble based on patient's age to complete this topic Hepatitis A Vaccines Aged Out No long er eligible based on patient's age to complete this topic IPV Vaccines Aged Out No longer eligi ble based on patient's age to complete this topic MMR Vaccines Aged Out No longer eligi ble based on patient's age to complete this topic Meningococcal ACWY Vaccine Aged Out N o longer eligible based on patient's age to complete this topic Meningococcal B Vacine Aged Out No lo nger eligible based on patient's age to complete this topic Pneumococcal Vaccine: Pediat rics (0 to 5 Years) and At-Risk Patients (6 to 64 Years) Aged Out No longer eligible b ased on patient's age to complete this topic RSV Immunization Patients Un dipti 20 months Aged Out No longer eligible b ased on patient's age to complete this topic Varicella Vaccines Aged Out No longer eligible based on patient's age to complete this topic Procedures Procedure Name Priority Date/Time Associated Diagnosis Comments THYROID STIMULATING HORMONE Routine 09/16/2024 9:48 AM EST Hyperthyroidism THYROXINE FREE Routine 09/16/2024 9:48 AM EST Hyperthyroidism HEPATIC FUNCTION PANEL Routine 09/16/2024 9:48 AM EST Hyperthyroidism US HEAD NECK SOFT TISSUE Routine 09/16/2024 9:30 AM EST Multiple thyroid nodules from Last 3 Months Results * Thyroid stimulating hormone (09/16/2024 9:48 AM EST) TSH 0.97 0.40 - 4.00 mcIU/mL LAB CHEMISTRY METHOD 09/16/2024 12:15 PM EST [facility] Blood Venous blood specimen / Unknown Venipuncture / Unknown 09/16/2024 9:48 AM EST 09/16/2024 9:48 AM EST Rosemary SERNA LAB BLOOD ORDERABLES Final Resul t Performing Organization Address City/[facility]/ZIP Co de Phone Number [facility] [address] [place] [address], * Thyroxine free (09/16/2024 9:48 AM EST) Pathologist [facility] Free T4 1.18 0.70 - 1.80 ng/dL LAB CHEMISTRY METHOD 09/16/2024 12:15 PM EST [facility] Blood Venous blood specimen / Unknown Venipuncture / Unknown 09/16/2024 9:48 AM EST 09/16/2024 9:48 AM EST Rosemary SERNA LAB BLOOD ORDERABLES Final Resul t Performing Organization Address City/[facility]/ZIP Co de Phone Number [facility] [address] [place] [address], * Hepatic function panel (09/16/2024 9:48 AM EST) Total Protein 6.8 6.0 - 8.0 g/dL LAB CHEMISTRY METHOD 09/16/2024 12:11 PM EST [facility] Albumin 4.1 3.2 - 5.0 g/dL LAB CHEMISTRY METHOD 09/16/2024 12:11 PM EST [facility] Total Bilirubin 0.7 0.0 - 1.4 mg/dL LAB CHEMISTRY METHOD 09/16/2024 12:11 PM [facility] Bilirubin, Direct 0.2 0.0 - 0.3 mg/dL LAB CHEMISTRY METHOD 09/16/2024 12:11 PM [facility] Bilirubin, Indirect 0.5 0.0 - 1.1 mg/dL LAB CHEMISTRY METHOD 09/16/2024 12:11 PM [facility] ALT (SGPT) 25 10 - 60 unit/L LAB CHEMISTRY METHOD 09/16/2024 12:11 PM [facility] AST (SGOT) 21 10 - 42 unit/L LAB CHEMISTRY METHOD 09/16/2024 12:11 PM [facility] Alkaline Phosphatase 78 42 - 121 unit/L LAB CHEMISTRY METHOD 09/16/2024 12:11 PM [facility] Blood Venous blood specimen / Unknown Venipuncture / Unknown 09/16/2024 9:48 AM EST 09/16/2024 9:48 AM EST us Rosemary SERNA LAB BLOOD ORDERABLES Final Resul t [facility] [address] [place] [address], * US Head Neck Soft Tissue (09/16/2024 9:30 AM EST) Anatomical Region Laterality Modality Head and Neck Ultrasound 09/16/2024 9:58 AM EST Impressions 09/16/2024 10:03 AM EST Heterogeneous thyroid gland without a definite thyroid nodule. POS - [id number] -------- FINAL REPORT -------- Dictated By: Shalini Burns Dictated Date: 09/16/2024 09:58 ET Assigned Physician: Shalini Burns Reviewed and Electronically Signed By: Shalini Burns Signed Date: 09/16/2024 10:03 ET Workstation ID: [id number] Transcribed By: Self Edit Transcribed Date: 09/16/2024 [...] without a definite thyroid nodule. POS - [id number] -------- FINAL REPORT -------- Dictated By: Shalini Burns Dictated Date: 09/16/2024 09:58 ET Assigned Physician: Shalini Burns Reviewed and Electronically Signed By: Shalini Burns Signed Date: 09/16/2024 10:03 ET Workstation ID: [id number] Transcribed By: Self Edit Transcribed Date: 09/16/2024 09:58 ET us Rosemary SERNA IMG US PROCEDURES Final Result from Last 3 Months Insurance [facility] Care Teams Wedding Florist Relationship Specialty Start Date End Date Dank Jones MD [address] [place] [address] Dr [address] [place] PCP - General 01/03/24
== END 2024-10-08 10:16 | disposition home or self-care (01) ==
PROVIDERS: PCP Internal Medicine; Visit Provider Internal Medicine
DX: Z00.00 Encounter for general adult medical examination without abnormal findings (principal); E05.90 Thyrotoxicosis, unspecified without thyrotoxic crisis or storm; L20.9 Atopic dermatitis, unspecified; H60.541 Acute eczematoid otitis externa, right ear; L85.1 Acquired keratosis [keratoderma] palmaris et plantaris

== ENCOUNTER 2024-10-08 09:09 | Outpatient (REF) | payer OTHER, SELFPAY ==
[2024-10-08 10:37] LABS: MANUAL DIFF FLAG NO
[2024-10-08 12:04] LABS: Basophils Absolute Auto 0.1 X10*3/uL (0.0-0.2); Basophils Percent Auto 1.1 % (0-2); Eosinophils Absolute Auto 0.2 X10*3/uL (0.0-0.4); Eosinophils Percent Auto 4.2 % (0-4); Hematocrit 44.6 % (37.0-47.0); Hemoglobin 14.8 g/dl (12.0-16.0); Imm Gran Abs Auto 0.03 X10*3/uL (0.00-0.03); Imm Gran Pct Auto 0.6 % (0.0-0.4); Lymphocytes Absolute Auto 1.9 X10*3/uL (1.2-4.9); Lymphocytes Percent Auto 35.6 % (20-40); Mean Corpuscular HGB Conc 33.2 g/dl (31.0-35.0); Mean Corpuscular Hemoglobin 29.6 pg (27.0-33.0); Mean Corpuscular Volume 89.2 fL (80.0-98.0); Mean Platelet Volume 10.4 fL (9.4-12.3); Monocytes Absolute Auto 0.3 X10*3/uL (0.1-1.2); Monocytes Percent Auto 5.4 % (2-11); Neutrophils Absolute Auto 2.8 x10*3/uL (2.0-8.3); Neutrophils Percent Auto 53.1 % (45-73); Platelet Count 188 X10*3/uL (160-400); Red Cell Distribution Width 12.5 % (11.0-16.0); White Blood Count 5.2 X10*3/uL (4.8-10.8)
--- OUTSIDE RECORDS SUMMARY | 2024-10-08 12:08 | XMS_ITS | Encounter Summary ---
Author Organization [facility] Address [address] [place] [address] Care Team Providers Care Business Services Sales Representative Name Role Phone Dank Jones MD Primary Care Provider + [phone] Reason for Referral * Imaging (Routine) - Pending Review Specialty Diagnoses / Procedures Referred By Ian t Referred To Contact Radiology Diagnoses Multiple thyroid nodules Procedures US Head Neck Soft Tissue Rosemary Chaney PA [address] [place] [phone] Phone: tel: fax: [facility] Referral ID Status Reason Start Date Expiration Date V isits Requested Visits Authorized [id number] Pending Review 06/16/2024 06/16/2025 1 1 Reason for Visit * Imaging (Routine) - Pending Review Specialty Diagnoses / Procedures Referred By Ian sterling Referred To Contact Radiology Diagnoses Multiple thyroid nodules Procedures US Head Neck Soft Tissue Rosemary Chaney PA [address] [place] [address] Phone: tel: fax: [facility] Referral ID Status Reason Start Date Expiration Date V isits Requested Visits Authorized [id number] Pending Review 06/16/2024 06/16/2025 1 1 Encounter Details Date Type Department Care Team (Latest Contact Info) Description 09/16/2024 9:15 AM EST - 09/16/2024 11:59 PM EST Hospital Encounter Radiology Department - [address] [phone] Multiple thyroid nodules Discharge Disposition: Home or [...] 9:40 AM EST Office Visit Endocrinology - [place] [address] [place] [phone] Rosemary Chaney PA [address] [place] [address] documented as of this encounter Procedures Procedure [...] without a definite thyroid nodule. POS - [id number] -------- FINAL REPORT -------- Dictated By: Shalini Burns Dictated Date: 09/16/2024 09:58 ET Assigned Physician: Shalini Burns Reviewed and Electronically Signed By: Shalini Burns Signed Date: 09/16/2024 10:03 ET Workstation ID: [id number] Transcribed By: Self Edit Transcribed Date: 09/16/2024 [...] without a definite thyroid nodule. POS - [id number] -------- FINAL REPORT -------- Dictated By: Shalini Burns Dictated Date: 09/16/2024 09:58 ET Assigned Physician: Shalini Burns Reviewed and Electronically Signed By: Shalini Burns Signed Date: 09/16/2024 10:03 ET Workstation ID: [id number] Transcribed By: Self Edit Transcribed Date: 09/16/2024 09:58 ET us Rosemary SERNA IMG US PROCEDURES Final Result documented in this encounter Visit Diagnoses Diagnosis Multiple thyroid nodules Nontoxic multinodular goiter documented in this encounter Care Teams Business Services Sales Representative Relationship Specialty Start Date End Date Dank Jones MD [address] [place] [address] Dr [address] [place] PCP - General 01/03/24 documented as of this encounter
--- OUTSIDE RECORDS SUMMARY | 2024-10-08 12:08 | XMS_ITS | Clinical Summary ---
Author Organization [address] Address [address] [place] [address] Phone Care Team Providers Care Residential Real Estate Appraiser Name Role Phone Dank Jones MD Primary Care Provider [phone] Allergies No known active allergies Medications methIMAzole (TAPAZOLE) 5 mg tablet TAKE 1 TABLET BY MOUTH EVERY DAY 30 tablet 2 08/25/2024 Active Encounters Date Type Department Care Team Description 09/16/2024 9:15 AM EST - 09/16/2024 11:59 PM EST Hospital Encounter Radiology Department - [address] [phone] Multiple thyroid nodules Discharge Disposition: Home or [...] 9:40 AM EST Office Visit Endocrinology - [place] [address] [place], [place] [phone] Rosemary Chaney PA [address] [place] [address] Health Maintenance Due Date Last Done Comments [...] LAB CHEMISTRY METHOD 09/16/2024 12:15 PM EST [facility] Blood Venous blood specimen / Unknown Venipuncture / Unknown 09/16/2024 9:48 AM EST 09/16/2024 9:48 AM EST Rosemary SERNA LAB BLOOD ORDERABLES Final Resul t Performing Organization Address City/[facility]/ZIP Co de Phone Number [facility] [address] [place] [address], * Thyroxine free (09/16/2024 9:48 AM EST) Pathologist [facility] Free T4 1.18 0.70 - 1.80 ng/dL LAB CHEMISTRY METHOD 09/16/2024 12:15 PM EST [facility] Blood Venous blood specimen / Unknown Venipuncture / Unknown 09/16/2024 9:48 AM EST 09/16/2024 9:48 AM EST Rosemary SERNA LAB BLOOD ORDERABLES Final Resul t Performing Organization Address City/[facility]/ZIP Co de Phone Number [facility] [address] [place] [address], * Hepatic function panel (09/16/2024 9:48 AM EST) Total Protein 6.8 6.0 - 8.0 g/dL LAB CHEMISTRY METHOD 09/16/2024 12:11 PM EST [facility] Albumin 4.1 3.2 - 5.0 g/dL LAB CHEMISTRY METHOD 09/16/2024 12:11 PM EST [facility] Total Bilirubin 0.7 0.0 - 1.4 mg/dL LAB CHEMISTRY METHOD 09/16/2024 12:11 PM [facility] Bilirubin, Direct 0.2 0.0 - 0.3 mg/dL LAB CHEMISTRY METHOD 09/16/2024 12:11 PM [facility] Bilirubin, Indirect 0.5 0.0 - 1.1 mg/dL LAB CHEMISTRY METHOD 09/16/2024 12:11 PM [facility] ALT (SGPT) 25 10 - 60 unit/L LAB CHEMISTRY METHOD 09/16/2024 12:11 PM [facility] AST (SGOT) 21 10 - 42 unit/L LAB CHEMISTRY METHOD 09/16/2024 12:11 PM [facility] Alkaline Phosphatase 78 42 - 121 unit/L LAB CHEMISTRY METHOD 09/16/2024 12:11 PM [facility] Blood Venous blood specimen / Unknown Venipuncture / Unknown 09/16/2024 9:48 AM EST 09/16/2024 9:48 AM EST us Rosemary SERNA LAB BLOOD ORDERABLES Final Resul t [facility] [address] [place] [address], * US Head Neck Soft Tissue (09/16/2024 9:30 AM EST) Anatomical Region Laterality Modality Head and Neck Ultrasound 09/16/2024 9:58 AM EST Impressions 09/16/2024 10:03 AM EST Heterogeneous thyroid gland without a definite thyroid nodule. POS - [id number] -------- FINAL REPORT -------- Dictated By: Shalini Burns Dictated Date: 09/16/2024 09:58 ET Assigned Physician: Shalini Burns Reviewed and Electronically Signed By: Shalini Burns Signed Date: 09/16/2024 10:03 ET Workstation ID: [id number] Transcribed By: Self Edit Transcribed Date: 09/16/2024 [...] without a definite thyroid nodule. POS - [id number] -------- FINAL REPORT -------- Dictated By: Shalini Burns Dictated Date: 09/16/2024 09:58 ET Assigned Physician: Shalini Burns Reviewed and Electronically Signed By: Shalini Burns Signed Date: 09/16/2024 10:03 ET Workstation ID: [id number] Transcribed By: Self Edit Transcribed Date: 09/16/2024 09:58 ET us Rosemary SERNA IMG US PROCEDURES Final Result from Last 3 Months Insurance [facility] Care Teams Residential Real Estate Appraiser Relationship Specialty Start Date End Date Dank Jones MD [address] [place] [address] Dr [address] [place] PCP - General 01/03/24
[2024-10-08 12:29] LABS: Alanine Aminotransferase 27 U/L (0-31); Albumin Level 4.8 g/dL (3.5-5.0); Alkaline Phosphatase 68 U/L (39-117); Anion Gap 10 (12-20); Aspartate Amino Transferase 29 U/L (5-31); Bilirubin Total 0.6 mg/dL (0.0-1.0); Blood Urea Nitrogen 15 mg/dL (9-16); Calcium 9.1 mg/dL (8.4-10.2); Carbon Dioxide 30 mmol/L (22-29); Chloride 105 mmol/L (96-108); Cholesterol 241 mg/dL (<200); Estimated Glomerular Filt Rate > 60; Glucose Fasting 91 mg/dL (60-99); HDL Cholesterol 76 mg/dL (>40); LDL Cholesterol Calculated 152 mg/dL (<100); Potassium 3.8 mmol/L (3.3-5.1); Sodium 141 mmol/L (135-145); Total Protein 7.8 g/dL (6.5-8.0); Triglycerides 68 mg/dL (<150)
[2024-10-08 12:44] LABS: Appearance Urine Clear; Color Urine Yellow; Glucose Urine UA Negative (Negative); Leukocyte Esterase Urine Large (3+) (Negative); Nitrite Urine Negative (Negative); UMIC TRIGGER UACC YES; Urine Blood Negative (Negative); Urine Ketones Negative (Negative); Urine Protein Negative (Neg-Trace)
[2024-10-08 12:52] LABS: Bacteria Urine 2+ (None Seen); Hyaline Casts Urine 0-2 /LPF (0-2); RBC Urine 0-2 /HPF (0-2); UACC Culture Trigger YES; WBC Urine 21-50 /HPF (0-5)
[2024-10-08 12:56] LABS: Free T4 (Free Thyroxine) 1.04 ng/dL (0.71-1.85); Thyroid Stimulating Hormone 1.84 uIU/mL (0.32-4.0); Vitamin D 25-OH Total 42.2 ng/mL (>30)
== END 2024-10-08 09:10 | disposition home or self-care (01) ==
LOC: HO.LAB 09:09
PROVIDERS: PCP Internal Medicine; Visit Provider Internal Medicine
DX: Z00.00 Encounter for general adult medical examination without abnormal findings (principal); E78.00 Pure hypercholesterolemia, unspecified; E55.9 Vitamin D deficiency, unspecified; D64.9 Anemia, unspecified; E04.9 Nontoxic goiter, unspecified; E05.90 Thyrotoxicosis, unspecified without thyrotoxic crisis or storm; L20.9 Atopic dermatitis, unspecified; H60.541 Acute eczematoid otitis externa, right ear; L85.1 Acquired keratosis [keratoderma] palmaris et plantaris
CPT/HCPCS: 36415; 80053; 80061; 81001; 82306; 84439; 84443; 85025; 87086; 87147; 96127; 99395

== ENCOUNTER 2024-12-09 08:30 | Outpatient (REF) | payer OTHER, SELFPAY ==
--- OUTSIDE RECORDS SUMMARY | 2024-12-09 10:05 | XMS_ITS | Clinical Summary ---
Author Organization [facility] [address] [place] [address] [place] [address] Phone Care Team Providers Care Photogrammetrist Name Role Phone Dank Jones MD Primary Care Provider [phone] Allergies No known active allergies Medications triamcinolone (KENALOG) 0.1 % lotion Apply topically. 10/08/19 25 Active acetic acid-hydrocort isone (VOSOL-HC) otic solution PLACE 4 DROPS INTO THE RIGHT EAR 3 TIMES A DAY FOR 7 DAYS 10/08/19 25 Active clobetasoL (OLUX) 0.05 % topical foam APPLY TO AFFECTED AREA TOPICALLY 2 TIMES A DAY FOR 2 WEEKS APPLY TO RASH ON SCALP TWICE A DAY 10/08/19 25 Active methIMAzole (TAPAZOLE) 5 mg tablet TAKE 1 TABLET BY MOUTH EVERY DAY 90 tablet 1 11/26/19 25 Active methIMAzole (TAPAZOLE) 5 mg tablet TAKE 1 TABLET BY MOUTH EVERY DAY 30 tablet 2 08/25/20 24 025 Discontinued Encounters Date Type Department Care Team Description 10/22/2024 9:40 AM EST Office Visit Endocrinology - [address] [phone] Rosemary Chaney PA Hyperthyroidism (Primary Dx) 09/16/2024 9:15 AM EST - 09/16/2024 11:59 PM EST Hospital Encounter Radiology Department - [address] [phone] Multiple thyroid nodules Discharge Disposition: Home or [...] Sign Reading Time Taken Comments Blood Pressure 110/60 10/22/2024 9:50 AM EST Pulse 60 10/22/2024 9:50 AM EST Temperature 36.3 ??C (97.3 ??F) 10/22/2024 9:50 AM ES T Respiratory Rate - - Oxygen Saturation - - Inhaled Oxygen Concentration - - Weight 66.1 kg (145 lb 12.8 oz) 10/22/2024 9:50 AM EST Height 167.6 cm (5' 6 ) 10/22/2024 9:50 AM EST Body Mass Index 23.53 10/22/2024 9:50 AM EST Plan of Treatment Upcoming Encounters Date Type Department Care Team (Late st Contact Info) Description 01/21/2025 8:20 AM EDT Office Visit Endocrinology - [place] [address] [place] [phone] Rosemary Chaney PA [address] [place] [address] Health Maintenance Due Date Last Done Comments DTaP,Tdap,and Td Vaccines (1 - Tdap) 2008 Hepatitis B Vaccines (1 of 3 - 19+ 3-dose series) 2008 Cervical Cancer Screening: P ap Smear 2010 Depression Screening 03/21/2024 HIV Screening 03/21/2024 Hepatitis C Screening 03/21/2024 Social Influencers of Health Screening 03/21/2024 COVID-19 Vaccine ( - 2023-2 5 season) 2024 Influenza Vaccine (Season Ended) 2025 HIB Vaccines Aged Out No longer eligi [...] age to complete this topic Meningococcal B Vaccine Aged Out No l onger eligible based on patient's age to complete [...] Thyroid stimulating hormone (09/16/2024 9:48 AM EST) Pathologist [facility] TSH 0.97 0.40 - 4.00 mcIU/mL LAB CHEMISTRY METHOD 09/16/2024 12:15 PM EST [facility] Blood Venous blood specimen / Unknown Venipuncture / Unknown 09/16/2024 9:48 AM EST 09/16/2024 9:48 AM EST us Rosemary SERNA LAB BLOOD ORDERABLES Final Resul t [facility] [address] [place] [address], [place] [phone] * Thyroxine free (09/16/2024 9:48 AM EST) Free T4 1.18 0.70 - 1.80 ng/dL LAB CHEMISTRY METHOD 09/16/2024 12:15 PM [facility] Blood Venous blood specimen / Unknown Venipuncture / Unknown 09/16/2024 9:48 AM EST 09/16/2024 9:48 AM EST us Rosemary SERNA LAB BLOOD ORDERABLES Final Resul t [facility] [address] [place] [address], [place] [phone] * Hepatic function panel (09/16/2024 9:48 AM EST) Total Protein 6.8 6.0 - 8.0 g/dL LAB CHEMISTRY METHOD 09/16/2024 12:11 PM [facility] Albumin 4.1 3.2 - 5.0 g/dL LAB CHEMISTRY METHOD 09/16/2024 12:11 PM [facility] Total Bilirubin 0.7 0.0 - 1.4 mg/dL LAB CHEMISTRY METHOD 09/16/2024 12:11 PM [facility] Bilirubin, Direct 0.2 0.0 - 0.3 mg/dL LAB CHEMISTRY METHOD 09/16/2024 12:11 PM [facility] Bilirubin, Indirect 0.5 0.0 - 1.1 mg/dL LAB CHEMISTRY METHOD 09/16/2024 12:11 PM [facility] ALT (SGPT) 25 10 - 60 unit/L LAB CHEMISTRY METHOD 09/16/2024 12:11 PM [facility] AST (SGOT) 21 10 - 42 unit/L LAB CHEMISTRY METHOD 09/16/2024 12:11 PM [facility] Alkaline Phosphatase 78 42 - 121 unit/L LAB CHEMISTRY METHOD 09/16/2024 12:11 PM [facility] Blood Venous blood specimen / Unknown Venipuncture / Unknown 09/16/2024 9:48 AM EST 09/16/2024 9:48 AM EST us Rosemary SERNA LAB BLOOD ORDERABLES Final Resul t [facility] [address] [place] [address], [place] [phone] * [place] Head Neck Soft Tissue (09/16/2024 9:30 AM EST) Anatomical Region Laterality Modality Head and Neck Ultrasound 09/16/2024 9:58 AM EST Impressions 09/16/2024 10:03 AM EST Heterogeneous thyroid gland without a definite thyroid nodule. POS - [id number] -------- FINAL REPORT -------- Dictated By: Shalini Burns Dictated Date: 09/16/2024 09:58 ET Assigned Physician: Shalini Burns Reviewed and Electronically Signed By: Shalini Burns Signed Date: 09/16/2024 10:03 ET Workstation ID: [id number] Transcribed By: Self Edit Transcribed Date: 09/16/2024 [...] without a definite thyroid nodule. POS - [id number] -------- FINAL REPORT -------- Dictated By: Shalini Burns Dictated Date: 09/16/2024 09:58 ET Assigned Physician: Shalini Burns Reviewed and Electronically Signed By: Shalini Burns Signed Date: 09/16/2024 10:03 ET Workstation ID: [id number] Transcribed By: Self Edit Transcribed Date: 09/16/2024 09:58 ET us Rosemary SERNA IMG US PROCEDURES Final Result from Last 3 Months Insurance [facility] PL[facility] Care Teams Photogrammetrist Relationship Specialty Start Date End Date Dank Jones MD [address] [place] [address] [address] [place], [place] PCP - General 01/03/24
== END 2024-12-09 08:31 | disposition home or self-care (01) ==
LOC: HO.LAB 08:30
PROVIDERS: PCP Internal Medicine; Visit Provider Advanced Practice Midwife
DX: Z01.411 Encounter for gynecological examination (general) (routine) with abnormal findings (principal); L29.2 Pruritus vulvae; N89.8 Other specified noninflammatory disorders of vagina; N39.0 Urinary tract infection, site not specified
CPT/HCPCS: 81003; 81025; 99212; 99395; 99459

== ENCOUNTER 2024-12-09 08:36 | Outpatient (AMB) | payer OTHER, SELFPAY ==
--- NOTE | 2024-12-09 08:36 | A.OFFVIS_ITS ---
Vital Signs 12/09/24 08:37 Height 5 ft 6 in Weight 147 lb BMI 23.7 BP 102/60 Intake Visit Reasons: annual Intake Note: pt c/o vag discharge and itching Occupational Health Physician Required: No Financial Institution Vice President: Financial Institution Vice President Present ([place]) Allergies No Known Allergies Allergy (Verified 12/09/24 08:38) Is last menstrual period known: Yes Last menstrual period: 10/27/24 HPI Comments Details: She is a premenopausal woman presenting for annual examination. Doing well with car escort concerns: Intermittent external itching, increased white, thick discharge. Occasional odor unsure if it is urine or vaginal. No dysuria or frequency. Occasional random pelvic pain. No dyspareunia. Regular monthly menses, x 5 days, heavy 1-2 days. H/H- 14.8/44.6, TSH-1.84, FT4-1.04, 09/2024. Currently is sexually active, using condoms. STI screening offered; she accepts. She tries to eat healthy and stays active with exercise. Denies family history of breast, ovarian or colon cancer. Last pap smear 2023, negative. [facility] Medical History (Updated 12/09/24 @ 09:10 by Yakelin Luna CNM) Vulvar itching Hyperthyroidism Multiple thyroid nodules Atopic dermatitis Goiter Surgical History No pertinent past surgical history Social History Household Members: Spouse and Children Housing: Apartment Alcohol intake: current Alcohol intake frequency: 0-2 drinks per day Patient Tobacco Use Status: Never used Tobacco e-Cigarette/Vaping Use: Never Used service: No Current occupational status: employed 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 Current occupational exposures/hazards: No Sexual orientation: Straight/Heterosexual Gender identity: Female Cognitive needs: No Hearing needs: No Vision needs: No Female Reproductive History Menstrual Age of Menarche: 14 Duration of menses: 3-5 days Date of last menstrual period: 10/27/24 control method: condoms Total pregnancies: 2 Full term: 2 Number of Living Children: 2 Review of Systems Const All systems reviewed & are unremarkable except as noted in HPI and below Reports as per HPI Eyes Reports no additional complaints ENT Reports no additional complaints Card Reports no additional complaints Resp Reports no additional complaints GI Reports as per HPI and Reports no additional complaints Reports as per HPI Musc Reports no additional complaints Skin/Breast Reports as per HPI Neuro Reports no additional complaints Psych Reports no additional complaints Endo Reports no additional complaints Noé/Lymph Reports no additional complaints Aller/Immun Reports no additional complaints Physical Exam Vital Signs: Last Vital Signs BP 102/60 12/09/24 08:37 BMI result Body Mass Index 23.7 Const General: cooperative, healthy appearing, no acute distress, well developed and alert Orientation/consciousness: patient oriented x3 HEENT Head: Yes normal to inspection Eyes General: appearance normal, both eyes and all related structures Neck Neck: Yes normal visual inspection Thyroid: Thyroid normal Chest Chest palpation & inspection: normal inspection of the chest and other (no puckering, dimpling, peau de orange, retraction, discharge, masses) Breast/axilla inspection: normal inspection of the breasts Breast/axilla palpation: normal palpation of the breasts Resp Effort & Inspection: normal respiratory effort GI Inspection: Yes normal to inspection Palpation (GI): Soft to palpation Rectal Exam - Female: deferred General: Yes bladder normal to palpation External Female Exam: normal external appearance and normal appearance of the urethra Speculum Exam - Vagina: normal appearance of the vagina, normal palpation and normal vaginal discharge Speculum Exam - Cervix: normal appearance of the cervix and normal palpation Bimanual exam- vagina & uterus: normal bimanual exam, normal palpation, uterine size normal, bladder normal to palpation, normal palpation and non-tender Bimanual Exam- Adnexa, other: no masses Skin General skin exam: no rashes or lesions noted Rashes: no rashes Neuro General: patient oriented x3 Cognition (Neuro): normal cognition Extrem General: Yes normal to inspection Psych Attitude: cooperative Thought process: Normal thought process present Results AMB Test Urine AMB Test Urine Negative Last Edit by MILTON Laws on 12/09/24 09:21 AMB Urinalysis, Automated UA Leukoctes 0 Jonelle/uL Last Edit by MILTON Laws on 12/09/24 09:21 UA Nitrite Negative Last Edit by MILTON Laws on 12/09/24 09:21 UA Urobilinogen 0 mg/dL Last Edit by MILTON Laws on 12/09/24 09:2 1 UA Protein 0 mg/dL Last Edit by Marry Isaias Sanders A on 12/09/24 09:21 UA pH 7.5 Last Edit by Marry Isaias Sanders A on 12/09/24 09:21 UA Blood 0 Jacob/uL Last Edit by Marry Pfeifferadam A on 12/09/24 09:21 UA Specific [place] 1.005 Last Edit by Marry Isaias Sanders A on 12/09/24 09:21 UA Ketone Negative Last Edit by Marry Isaias Sanders A on 12/09/24 09:21 UA Bilirubin 0 mg/dL Last Edit by Marry Isaias Sanders A on 12/09/24 09:21 UA Glucose 0 mg/dL Last Edit by Marry Isaias Sanders A on 12/09/24 09:21 Results Reviewed Results Reviewed: Laboratory Last Values Urine pH (Auto) 7.5 12/09/24 09:15 Specific [place] (Auto) 1.005 12/09/24 09:15 Urine Protein (Auto) 0 mg/dL 12/09/24 09:15 Glucose (UA)(Auto) 0 mg/dL 12/09/24 09:15 Urine Ketones (Auto) Negative 12/09/24 09:15 Urine Blood (Auto) 0 Jacob/uL 12/09/24 09:15 Urine Nitrite (Auto) Negative 12/09/24 09:15 Urine Bilirubin (Auto) 0 mg/dL 12/09/24 09:15 Urine Urobilinogen (Auto) 0 mg/dL 12/09/24 09:15 Leukocyte Esterase (Auto) 0 Jonelle/uL 12/09/24 09:15 Tst Clinic Negative 12/09/24 09:15 Assessment & Plan Assessment & Plan (1) Encounter for well woman exam with routine gynecological exam: Code(s): Z01.419 - Encounter for gynecological examination (general) (routine) without abnormal findings Category: Medical (2) Vulvar itching: Code(s): L29.2 - Pruritus vulvae Category: Medical Plan: Avoid any sent it products. Care for self and clothing maintenance. Rx for topical cream to be sent in. Await culture results for final plan of care. The patient expressed understanding and agreement with the plan of care. All of her questions and concerns were addressed to the best of my ability. Total time I personally spent on visit and management today: ?10 minutes. Time spent included review of pertinent office notes in the electronic health record; review of laboratory and imaging results; review of personal family medical history; performing physical exam; discussing diagnosis and plan of care with the patient; documenting the encounter in the EMR. (3) Vaginal discharge: Code(s): N89.8 - Other specified noninflammatory disorders of vagina Category: Medical Plan: GC chlamydia and BV panel obtained. Urine dip negative. UPT is negative. Plan Discussed: Current recommendations for pap smears per ASCCP guidelines. Breast awareness and periodic breast exams. Maintain a healthy lifestyle including a well balanced diet and routine exercise. Use condoms for prevention. Monitor menstrual cycles, report any unscheduled bleeding, bleeding episodes <24 days apart or heavy/prolonged menstrual bleeding. Call the office for a follow up for any concerns. Patient verbalizes understanding and agrees to the plan of care. She was given opportunity to ask questions and all questions were answered to the best of my ability. RTO in one year for annual car escort examination. This note is constructed using voice recognition software. While every effort has been made to ensure accuracy, gear cutter errors may have been included. Orders: Orders AMB HCG Urine Test Today Z32.02 - Encounter for test, result negative Bacterial Vaginosis Panel Today N89.8 - Other specified noninflammatory disorders of vagina CT NG by PCR Today N89.8 - Other specified noninflammatory disorders of vagina AMB Urinalysis Automated Today N39.0 - Urinary tract infection, site not specified Medications: Refilled clotrimazole-betamethasone 1-0.05 % apply externally a thin coat to the area 1 appl topical BID 45 grams 0RF itching 7 days Coding Level of Care Code Est Pt Level 2 (81940) Est Pt Prev Care 18-39y(98801) Diagnoses Encounter for well woman exam with routine gynecological exam Z01.419 Vulvar itching L29.2 Vaginal discharge N89.8
[2024-12-09 08:37] VITALS: BP 102/60; BMI 23.7
== END 2024-12-09 09:25 | disposition home or self-care (01) ==
LOC: HO.HWS 08:36
PROVIDERS: PCP Internal Medicine; Visit Provider Advanced Practice Midwife
DX: Z01.419 Encounter for gynecological examination (general) (routine) without abnormal findings (principal); L29.2 Pruritus vulvae; N89.8 Other specified noninflammatory disorders of vagina; Z32.02 Encounter for pregnancy test, result negative; N39.0 Urinary tract infection, site not specified
CPT/HCPCS: 99212; 99395; 99459

== ENCOUNTER 2024-12-09 09:15 | Outpatient (REF) | payer OTHER, SELFPAY ==
[2024-12-09 15:22] LABS: Bacterial Vaginosis PCR NEGATIVE (Negative); Candida Group PCR DETECTED (Not Detect); Candida glab krusei PCR NOT DETECTED (Not Detect); Trichomonas vaginalis PCR NOT DETECTED (Not Detect)
[2024-12-09 15:52] LABS: CT PCR NOT DETECTED (Not Detect.); NG PCR NOT DETECTED (Not Detect.)
== END 2024-12-09 09:16 | disposition home or self-care (01) ==
LOC: HO.LNP 09:15
PROVIDERS: Visit Provider Advanced Practice Midwife
DX: N89.8 Other specified noninflammatory disorders of vagina (principal)
CPT/HCPCS: 81515; 87491; 87591

== ENCOUNTER 2025-02-12 14:19 | Outpatient (AMB) | payer OTHER, SELFPAY ==
--- NOTE | 2025-02-12 14:24 | MHC.OFFVIS ---
Vital Signs 02/12/25 14:25 Height 5 ft 6 in Weight 147 lb BMI 23.7 BP 100/60 Intake Visit Reasons: vaginal bleeding Circular Head Saw Operator: Circular Head Saw Operator Present (Yesika) Allergies No Known Allergies Allergy (Verified 02/12/25 14:25) Is last menstrual period known: Yes Last menstrual period: 01/16/25 HPI Comments Details: Patient is here today for AUB, onset 01/16, light brown, increased in January, uses panty liner x4 per day. Occasional sharp pain on mid lower pelvis. Practices abstinence during bleeding episode. [facility] Medical History (Updated 02/12/25 @ 15:01 by Yakelin Luna CNM) Lesion of cervix Abnormal uterine bleeding (AUB) Vulvar itching Hyperthyroidism Multiple thyroid nodules Atopic dermatitis Goiter Surgical History No pertinent past surgical history Social History Household Members: Spouse and Children Housing: Apartment Alcohol intake: current Alcohol intake frequency: 0-2 drinks per day Patient Tobacco Use Status: Never used Tobacco e-Cigarette/Vaping Use: Never Used service: No Current occupational status: employed 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 Current occupational exposures/hazards: No Sexual orientation: Straight/Heterosexual Gender identity: Female Cognitive needs: No Hearing needs: No Vision needs: No Female Reproductive History Menstrual Age of Menarche: 14 Date of last menstrual period: 01/16/25 Review of Systems Const All systems reviewed & are unremarkable except as noted in HPI and below Physical Exam Vital Signs: Last Vital Signs BP 100/60 02/12/25 14:25 BMI result Body Mass Index 23.7 Const General: cooperative, healthy appearing and no acute distress Orientation/consciousness: patient oriented x3 GI Inspection: Yes normal to inspection Palpation (GI): Soft to palpation and Other GI palpation findings present (Nontender) Rectal Exam - Female: visual inspection normal General: Yes bladder normal to palpation External Female Exam: normal appearance of the urethra Speculum Exam - Vagina: normal appearance of the vagina, normal palpation, normal vaginal discharge and vaginal bleeding Speculum Exam - Cervix: normal appearance of the cervix, normal palpation and Cervical lesion present mass (At 07:00) Bimanual exam- vagina & uterus: normal bimanual exam, normal palpation, uterine size normal, bladder normal to palpation, normal palpation, uterine shape normal and non-tender Bimanual Exam- Adnexa, other: normal adnexae OB/external & speculum: vaginal bleeding Neuro General: patient oriented x3 Results AMB Test Urine AMB Test Urine Negative Last Edit by MILTON Laws on 02/12/25 14:33 Results Reviewed Results Reviewed: Laboratory Last Values Tst Clinic Negative 02/12/25 14:33 Assessment & Plan Assessment & Plan (1) Abnormal uterine bleeding (AUB): Code(s): N93.9 - Abnormal uterine and vaginal bleeding, unspecified Category: Medical Plan: Workup for AUB to include cervical cultures and pelvic ultrasound follow up pending results for final plan of care and treatment. Pelvic rest for now. Encouraged good hydration. Report any abnormal prolonged or heavy episodes of bleeding or signs of lightheadedness, dizziness, or shortness of breath. The patient expressed understanding and agreement with the plan of care. All of her questions and concerns were addressed to the best of my ability. Total time I personally spent on visit and management today: ?30 minutes. Time spent included review of pertinent office notes in the electronic health record; review of laboratory and imaging results; review of personal family medical history; performing physical exam; discussing diagnosis and plan of care with the patient; documenting the encounter in the EMR. (2) Lesion of cervix: Code(s): N88.9 - Noninflammatory disorder of cervix uteri, unspecified Category: Medical Plan Pap smear obtained. Await results for plan of care, follow up pending results. Colposcopy advised appointment to be made following ultrasound results. The patient expressed understanding and agreement with the plan of care. All of her questions and concerns were addressed to the best of my ability. This note is constructed using voice recognition software. While every effort has been made to ensure accuracy, accounting generalist errors may have been included. Orders: Orders Bacterial Vaginosis Panel Today N88.9 - Noninflammatory disorder of cervix uteri, unspecified, N93.9 - Abnormal uterine and vaginal bleeding, unspecified CT NG by PCR Today N88.9 - Noninflammatory disorder of cervix uteri, unspecified, N93.9 - Abnormal uterine and vaginal bleeding, unspecified HPV High risk Today N88.9 - Noninflammatory disorder of cervix uteri, unspecified, N93.9 - Abnormal uterine and vaginal bleeding, unspecified AMB HCG Urine Test Today N93.9 - Abnormal uterine and vaginal bleeding, unspecified US pelvic and transvaginal Today N88.9 - Noninflammatory disorder of cervix uteri, unspecified, N93.9 - Abnormal uterine and vaginal bleeding, unspecified Pap Smear Today N88.9 - Noninflammatory disorder of cervix uteri, unspecified, N93.9 - Abnormal uterine and vaginal bleeding, unspecified Coding Level of Care Code Est Pt Level 3 (59542) Diagnoses Abnormal uterine bleeding (AUB) N93.9 Lesion of cervix N88.9
[2025-02-12 14:25] VITALS: BP 100/60; BMI 23.7
--- OUTSIDE RECORDS SUMMARY | 2025-02-12 15:34 | XMS_ITS | Clinical Summary ---
Author Organization [address] Address [address] [place] [address] Phone Care Team Providers Care Veneer Manufacturer Name Role Phone Dank Jones MD Primary Care Provider [phone] Allergies No known active allergies Medications triamcinolone [...] SCALP TWICE A DAY 10/08/19 25 Active clotrimazole-b etamethasone (LOTRISONE) 1-0.05 % cream 1 APPL TOPICALLY 2 TIMES A DAY FOR ITCHING FOR 7 DAYS APPLY EXTERNALLY A THIN COAT TO THE AREA 12/10/19 25 Active methIMAzole (TAPAZOLE) 5 mg tablet TAKE 1 TABLET BY MOUTH EVERY DAY 90 tablet 1 11/26/19 25 025 Discontinued Encounters Date Type Department Care Team Description 01/21/2025 8:20 AM EDT Office Visit Endocrinology - [address] [phone] Rosemary Chaney PA Hyperthyroidism (Primary Dx) 01/06/2025 Telephone Endocrinology [address] [phone] Richard, Esme, RN from Last 3 Months Social History Tobacco [...] Sign Reading Time Taken Comments Blood Pressure 107/61 01/21/2025 8:12 AM EDT Pulse 57 01/21/2025 8:12 AM EDT Temperature 35.9 C (96.7 F) 01/21/2025 8:12 AM EDT Respiratory Rate - - Oxygen Saturation - - Inhaled Oxygen Concentration - - Weight 66.9 kg (147 lb 6.4 oz) 01/21/2025 8:12 A M EDT Height 167.6 cm (5' 6 ) 01/21/2025 8:12 AM EDT Body Mass Index 23.79 01/21/2025 8:12 AM EDT Plan of Treatment Upcoming Encounters Date Type Department Care Team (Late st Contact Info) Description 03/05/2025 11:15 AM EDT Office Visit Endocrinology - [place] [address] [place] [phone] Naika Hill MD [address] [place] [address] Health Maintenance Due Date Last Done Comments [...] Procedure Name Priority Date/Time Associated Diagnosis Comments HCG, SERUM, QUALITATIVE Routine 01/27/20 10:51 AM EDT Hyperthyroidism THYROID STIMULATING HORMONE Routine 01/26/2025 10:51 AM EDT Hyperthyroidism THYROXINE FREE Routine 01/26/2025 10:51 AM EDT Hyperthyroidism TRIIODOTHYRONINE FREE Routine 01/26/2025 10:51 AM EDT Hyperthyroidism EXTERNAL NUC MED REPORT 01/05/2025 from Last 3 Months Results * HCG, serum, qualitative (01/26/2025 10:51 AM EDT) hCG Qual Negative Negative 01/26/2025 2:14 PM EDT [facility] Blood Venous blood specimen / Unknown Venipuncture / Unknown 01/26/2025 10:51 AM EDT 01/26/2025 10:51 AM EDT us Rosemary SERNA LAB BLOOD ORDERABLES Final Resul t [facility] [address] [place] [address], * Triiodothyronine free (01/26/2025 10:51 AM EDT) T3, Free 324 230 - 420 pcg/dL LAB CHEMISTRY METHOD 01/26/2025 2:29 PM EDT [facility] Blood Venous blood specimen / Unknown Venipuncture / Unknown 01/26/2025 10:51 AM EDT 01/26/2025 10:51 AM EDT us Rosemary SERNA LAB BLOOD ORDERABLES Final Resul t Performing Organization Address City/[facility] Co de Phone Number [facility] [address] [place] [address], [place] [phone] * (ABNORMAL) Thyroid stimulating hormone (01/26/2025 10:51 AM EDT) TSH 4.82(H) 0.40 - 4.00 mcIU/mL LAB CHEMISTRY METHOD 01/26/2025 2:30 PM EDT [facility] Blood Venous blood specimen / Unknown Venipuncture / Unknown 01/26/2025 10:51 AM EDT 01/26/2025 10:51 AM EDT us Rosemary SERNA LAB BLOOD ORDERABLES Final Resul t Performing Organization Address [facility] de Phone Number [facility] [address] [place] [address], [place] [phone] * Thyroxine free (01/26/2025 10:51 AM EDT) Free T4 1.36 0.70 - 1.80 ng/dL LAB CHEMISTRY METHOD 01/26/2025 2:29 PM EDT [facility] Blood Venous blood specimen / Unknown Venipuncture / Unknown 01/26/2025 10:51 AM EDT 01/26/2025 10:51 AM EDT us Rosemary SERNA LAB BLOOD ORDERABLES Final Resul t Performing Organization Address City/[facility] Co de Phone Number [facility] [place] ([facility] [address] [place] [address], * External Nuc Med Report (01/05/2025) Anatomical Region Laterality Modality Nuclear Medicine us Provider [facility] IMG NM PROCEDURES Final Result from Last 3 Months Insurance [facility] Consulted PLAN Care Teams Veneer Manufacturer Relationship Specialty Start Date End Date Dank Jones MD [address] [place] [address] Dr [address] [facility] PCP - General 01/03/24
== END 2025-02-12 15:10 | disposition home or self-care (01) ==
LOC: HO.HWS 14:19
PROVIDERS: PCP Internal Medicine; Visit Provider Advanced Practice Midwife
DX: N93.9 Abnormal uterine and vaginal bleeding, unspecified (principal); N88.9 Noninflammatory disorder of cervix uteri, unspecified
CPT/HCPCS: 99213

== ENCOUNTER 2025-02-12 14:19 | Outpatient (REF) | payer OTHER, SELFPAY ==
[2025-02-12 18:03] LABS: Bacterial Vaginosis PCR NEGATIVE (Negative); Candida Group PCR DETECTED (Not Detect); Candida glab krusei PCR NOT DETECTED (Not Detect); Trichomonas vaginalis PCR NOT DETECTED (Not Detect)
[2025-02-12 18:34] LABS: CT PCR NOT DETECTED (Not Detect.); NG PCR NOT DETECTED (Not Detect.)
== END 2025-02-12 14:20 | disposition home or self-care (01) ==
LOC: HO.LAB 14:19
PROVIDERS: PCP Internal Medicine; Visit Provider Advanced Practice Midwife
DX: N93.9 Abnormal uterine and vaginal bleeding, unspecified (principal); N88.9 Noninflammatory disorder of cervix uteri, unspecified
CPT/HCPCS: 81025; 81515; 87491; 87591; 99212

== ENCOUNTER 2025-02-12 15:03 | Outpatient (REF) | payer OTHER, SELFPAY ==
[2025-02-19 10:37] LABS: HPV Genotype 16 Negative (Negative); HPV Genotype 18 Negative (Negative); HPV High Risk Negative (Negative)
== END 2025-02-12 15:04 | disposition home or self-care (01) ==
LOC: HO.LNP 15:03
PROVIDERS: Visit Provider Advanced Practice Midwife
DX: N88.9 Noninflammatory disorder of cervix uteri, unspecified (principal); N93.9 Abnormal uterine and vaginal bleeding, unspecified
CPT/HCPCS: 87626; 88175

== ENCOUNTER 2025-03-19 15:09 | Outpatient (REF) | payer OTHER, SELFPAY ==
--- NOTE | ~2025-03-19 | US_ITS ---
CLINICAL HISTORY: N93.9 - Abnormal uterine and vaginal bleeding, unspecified US pelvis transabdominal and transvaginal with color Doppler Comparison: None Findings: Transabdominal scanning performed for overall anatomy. Transvaginal scanning performed for additional detail. LMP: 2-3 weeks ago Retroverted uterus, normal size and echotexture, measuring 9.6 x 5.7 x 7.3 cm. Incidental nabothian cysts. Well defined heterogeneous endometrium, measuring 18 mm in thickness. Thickened endometrium with feeder vessels present. Uterine fibroid: Right fundal intramural 2.6 x 1.6 x 3.3 cm The right ovary measures, 3.2 x 1.3 x 1.4 cm. Normal sonographic appearance right ovary. The left ovary measures, 4.2 x 1.5 x 2.7 cm. Normal sonographic appearance left ovary. No adnexal masses or fluid collections. Trace free fluid right adnexa Impression: 1. Retroverteduterus with a fundal fibroid. 2. Thickened endometrium. A prominent feeder vessel is present possible endometrial polyp can be correlated with sonohysterogram. Endometrial hyperplasia versus dysplasia not excluded. 3. Normal ovaries/adnexa. This document has been electronically signed by: Elmo Watters MD on 03/19/2025 18:56:55
--- OUTSIDE RECORDS SUMMARY | 2025-03-19 15:12 | XMS_ITS | Clinical Summary ---
Author Organization [facility] [address] [place] [address] Address [address] [place], [place] Phone Care Team Providers Care Workers Compensation Examiner Name Role Phone Dank Jones MD Primary Care Provider Allergies No known active allergies Medications triamcinolone (KENALOG) 0.1 % lotion Apply topically. 5 Active acetic acid-hydrocorti sone (VOSOL-HC) otic solution PLACE 4 DROPS INTO THE RIGHT EAR 3 TIMES A DAY FOR 7 DAYS 5 Active clobetasoL (OLUX) 0.05 % topical foam APPLY TO AFFECTED AREA TOPICALLY 2 TIMES A DAY FOR 2 WEEKS APPLY TO RASH ON SCALP TWICE A DAY 5 Active clotrimazole-be tamethasone (LOTRISONE) 1-0.05 % cream 1 APPL TOPICALLY 2 TIMES A DAY FOR ITCHING FOR 7 DAYS APPLY EXTERNALLY A THIN COAT TO THE AREA 5 Active Encounters Date Type Department Care Team Description 03/05/2025 11:15 AM EDT Office Visit Endocrinology - [address] [phone] Nakia Hill MD Hyperthyroidism (Primary Dx) 01/21/2025 8:20 AM EDT Office Visit [address] [phone] Rosemary Chaney PA Hyperthyroidism (Primary Dx) 01/06/2025 Telephone Endocrinology [address] [phone] Esme Rmaos RN from Last 3 Months Social History [...] Sign Reading Time Taken Comments Blood Pressure 97/55 03/05/2025 11:23 AM EDT Pulse 59 03/05/2025 11:23 AM EDT Temperature 35.9 C (96.7 F) 01/21/2025 8:12 AM EDT Respiratory Rate 13 03/05/2025 11:23 AM EDT Oxygen Saturation - - Inhaled Oxygen Concentration - - Weight 64 kg (141 lb) 03/05/2025 11:23 AM EDT Height 167.6 cm (5' 6 ) 03/05/2025 11:23 AM EDT Body Mass Index 22.76 03/05/2025 11:23 AM EDT Plan of Treatment Upcoming Encounters Date Type Department Care Team (Late st Contact Info) Description 04/23/2025 9:45 AM EDT Office Visit Endocrinology - [address] [phone] Nakia Hill MD [address] [place] [address] Health Maintenance Due Date Last Done Comments DTaP,Tdap,and Td Vaccines (1 - Tdap) 2008 Hepatitis B Vaccines (1 of 3 - 19+ 3-dose series) 2008 Cervical Cancer Screening: P ap Smear 2010 HIV Screening 03/21/2024 Hepatitis C Screening 03/21/2024 Social Influencers of Health Screening 03/21/2024 COVID-19 Vaccine (1 - 2023-2 5 season) 2024 Depression Screening 08/27/2024 Influenza Vaccine (#1) 2025 HIB Vaccines Aged Out No longer [...] 5 Years) and At-Risk Patients (6 to 49 Years) Aged Out No longer eligible b ased on patient's age to complete this topic RSV Immunization Patients Un dipti 20 months Aged Out No longer eligible b ased on patient's age to complete this topic Varicella Vaccines Aged Out No longer eligible based on patient's age to complete this topic Procedures Procedure Name Priority Date/Time Associated Diagnosis Comments THYROXINE FREE Routine 03/04/2025 10:55 AM EDT History of hypothyroidism THYROID STIMULATING HORMONE Routine 03/04/2025 10:55 AM EDT History of hypothyroidism HCG, SERUM, QUALITATIVE Routine 01/27/20 10:51 AM EDT Hyperthyroidism THYROID STIMULATING HORMONE Routine 01/26/2025 10:51 AM EDT Hyperthyroidism THYROXINE FREE Routine 01/26/2025 10:51 AM EDT Hyperthyroidism TRIIODOTHYRONINE FREE Routine 01/26/2025 10:51 AM EDT Hyperthyroidism EXTERNAL NUC MED REPORT 01/05/2025 from Last 3 Months Results * Thyroid stimulating hormone (03/04/2025 10:55 AM EDT) Only the most recent of2 resultswithin the time period is included. TSH 2.46 0.40 - 4.00 mcIU/mL LAB CHEMISTRY METHOD 03/04/2025 3:12 PM EDT [facility] Blood Venous blood specimen / Unknown Venipuncture / Unknown 03/04/2025 10:55 AM EDT 03/04/2025 10:55 AM EDT Nakia Hill MD LAB BLOOD ORDERABLES Final Resul t Performing Organization Address City/[facility]/ZIP Co de Phone Number [facility] [address] [place] [address], [place] [phone] * Thyroxine free (03/04/2025 10:55 AM EDT) Only the most recent of2 resultswithin the time period is included. Free T4 1.45 0.70 - 1.80 ng/dL LAB CHEMISTRY METHOD 03/04/2025 3:10 PM EDT [facility] Blood Venous blood specimen / Unknown Venipuncture / Unknown 03/04/2025 10:55 AM EDT 03/04/2025 10:55 AM EDT Nakia Hill MD LAB BLOOD ORDERABLES Final Resul t Performing Organization Address [facility] Co de Phone Number [facility] [address] [place] [address], * HCG, serum, qualitative (01/26/2025 10:51 AM EDT) Pathologist [facility] hCG Qual Negative Negative 01/26/2025 2:14 PM EDT [facility] Blood Venous blood specimen / Unknown Venipuncture / Unknown 01/26/2025 10:51 AM EDT 01/26/2025 10:51 AM EDT us Rosemary SERNA LAB BLOOD ORDERABLES Final Resul t Performing Organization Address City/[facility]/ZIP Co de Phone Number [facility] [address] [place] [address], [place] [phone] * Triiodothyronine free (01/26/2025 10:51 AM EDT) T3, Free 324 230 - 420 pcg/dL LAB CHEMISTRY METHOD 01/26/2025 2:29 PM EDT [facility] ([facility]) [facility] Blood Venous blood specimen / Unknown Venipuncture / Unknown 01/26/2025 10:51 AM EDT 01/26/2025 10:51 AM EDT Rosemary SERNA LAB BLOOD ORDERABLES Final Resul t [facility] ([facility]) [facility] [address] [place] [address], [place] [phone] * External Nuc Med Report (01/05/2025) Anatomical Region Laterality Modality Nuclear Medicine us Provider [facility] IMG NM PROCEDURES Final Result from Last 3 Months Insurance [facility] [employer] Care Teams Workers Compensation Examiner Relationship Specialty Start Date End Date Dank Jones MD [address] [place] [address] Dr [place] [address] PCP - General 01/03/24
== END 2025-03-19 15:10 | disposition home or self-care (01) ==
LOC: HO.US 15:09
PROVIDERS: PCP Internal Medicine; Visit Provider Advanced Practice Midwife
DX: N93.9 Abnormal uterine and vaginal bleeding, unspecified (principal); N88.9 Noninflammatory disorder of cervix uteri, unspecified
CPT/HCPCS: 76830; 76856

== ENCOUNTER → 2025-03-19 15:11 | Outpatient (BNV) | payer OTHER, SELFPAY | PROVIDERS: PCP Internal Medicine; Visit Provider Radiology Diagnostic Radiology | DX: D25.9 Leiomyoma of uterus, unspecified (principal) | CPT/HCPCS: 76830; 76856 ==

== ENCOUNTER 2025-04-01 09:26 | Outpatient (AMB) | payer OTHER, SELFPAY ==
--- NOTE | 2025-04-01 09:28 | A.OFFVIS_ITS ---
Vital Signs 04/01/25 09:29 Height 5 ft 6 in Weight 147 lb BMI 23.7 Intake Visit Reasons: Ultra sound follow up Intake Note: here to go over ultrasound results Retail Security Professional Required: Yes Retail Security Professional Language: Mandarin Swiss Retail Security Professional Services: Retail Security Professional Present Retail Security Professional Name: voice box Information Interpreted: non-clinical & clinical Executive Talent Acquisition Consultant: Executive Talent Acquisition Consultant Present Accompanied by: Self / Same As Patient Allergies No Known Allergies Allergy (Verified 04/01/25 09:31) Medication List - Last Reconciled 04/01/25 by Vijaya Brandt LPN ammonium lactate 5% (Lac-Hydrin Five) 1 appl topical BID PRN clobetasol 0.05% 1 appl topical BID 2 weeks clotrimazole-betamethasone 1-0.05 % 1 appl topical BID 7 days hydrocortisone-acetic acid 1-2 % 4 drps otic (ear) right TID 7 days triamcinolone acetonide 0.1% 1 appl topical BID Is last menstrual period known: Yes Last menstrual period: 03/07/25 Post menopausal: No Patient : No Do you need a note to return to daycare/school/sports/work: No HPI Comments Details: Patient is here today for a follow up pelvic ultrasound results, history of abnormal uterine bleeding. [facility] Medical History Fibroid Thickened endometrium Lesion of cervix Abnormal uterine bleeding (AUB) Vulvar itching Hyperthyroidism Multiple thyroid nodules Atopic dermatitis Goiter Surgical History No pertinent past surgical history Social History Household Members: Spouse and Children Housing: Apartment Alcohol intake: current Alcohol intake frequency: 0-2 drinks per day Patient Tobacco Use Status: Never used Tobacco e-Cigarette/Vaping Use: Never Used service: No Current occupational status: employed 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 Current occupational exposures/hazards: No Sexual orientation: Straight/Heterosexual Gender identity: Female Cognitive needs: No Hearing needs: No Vision needs: No Female Reproductive History Menstrual Age of Menarche: 14 Date of last menstrual period: 03/07/25 control method: condoms Total pregnancies: 2 Number of Living Children: 2 Review of Systems Const All systems reviewed & are unremarkable except as noted in HPI and below Endo Reports no additional complaints Physical Exam Vital Signs: BMI result Body Mass Index 23.7 Const General: cooperative, healthy appearing and no acute distress Psych Appearance: well kempt Attitude: cooperative Thought process: Normal thought process present Results Reviewed Results Reviewed: [address] [address] Ultrasound Report Signed Patient: Florencio Selby MR#: [id number] : 1990 Acct:[id number] Age/Sex: 34 / F ADM Date: 03/19/25 Loc: HO.US Attending Dr: Yakelin Luna CNM Ordering Physician: Yakelin Luna CNM Date of Service: 03/19/25 Procedure(s): US pelvic and transvaginal Accession Number(s): [id number] cc: Dank Jones MD; Yakelin Luna CNM~ CLINICAL HISTORY: N93.9 - Abnormal uterine and vaginal bleeding, unspecified US pelvis transabdominal and transvaginal with color Doppler Comparison: None Findings: Transabdominal scanning performed for overall anatomy. Transvaginal scanning performed for additional detail. LMP: 2-3 weeks ago Retroverted uterus, normal size and echotexture, measuring 9.6 x 5.7 x 7.3 cm. Incidental nabothian cysts. Well defined heterogeneous endometrium, measuring 18 mm in thickness. Thickened endometrium with feeder vessels present. Uterine fibroid: Right fundal intramural 2.6 x 1.6 x 3.3 cm The right ovary measures, 3.2 x 1.3 x 1.4 cm. Normal sonographic appearance right ovary. The left ovary measures, 4.2 x 1.5 x 2.7 cm. Normal sonographic appearance left ovary. No adnexal masses or fluid collections. Trace free fluid right adnexa Impression: 1. Retroverteduterus with a fundal fibroid. 2. Thickened endometrium. A prominent feeder vessel is present possible endometrial polyp can be correlated with sonohysterogram. Endometrial hyperplasia versus dysplasia not excluded. 3. Normal ovaries/adnexa. This document has been electronically signed by: Elmo Watters MD on 03/19/2025 18:56:55 Dictated By: Elmo Watters MD Signed By: <Electronically signed by Elmo Watters MD in OV> 03/19/251857 DD/ 55 TD/TT: 03/19/251855 Research Laboratory Technician: Assessment & Plan Assessment & Plan (1) Thickened endometrium: Code(s): R93.89 - Abnormal findings on diagnostic imaging of other specified body structures Category: Medical Plan: Discussed ultrasound findings- Impression: 1. Retroverteduterus with a fundal fibroid. 2. Thickened endometrium. A prominent feeder vessel is present possible endometrial polyp can be correlated with sonohysterogram. Endometrial hyperplasia versus dysplasia not excluded. 3. Normal ovaries/adnexa. Advised removal of possible polyp and evaluation of thickened endometrium to rule out any abnormal cells including atypia, precancer or cancer. Advised hysteroscopy procedure to be done under IV sedation we will need a consult with Dr. Faulkner who performed the procedure. All of her questions and concerns were addressed to the best of my ability. (2) Fibroid: Code(s): D21.9 - Benign neoplasm of connective and other soft tissue, unspecified Category: Medical Plan: Discussed fibroid findings- 2.6cm right fundal intramural. Plan Counseled re: Leiomyoma: common pelvic neoplasm. Differential diagnosis-may include but not limited to- leiomyosarcoma which is a rare uterine sarcoma 3- 7/100,000, difficult to distinguish from fibroids on ultrasound from uterine sarcoma's. Unlikely any single test will have a highly positive predictive value. Hysterectomy is not recommended for sole purpose of excluding malignant neoplasm. Consult for surgical exploration, medical treatment, other treatments, verses expectant management, pros and cons, risks and benefits. Expectant management follow up in 6 months, then yearly for stability. Patient prefers to proceed with expectant management. Referral to MD if indicated for level of care if indicated Report any AUB, pelvic pressure, bloating, or pain. The patient expressed understanding and agreement with the plan of care. All of her questions and concerns were addressed to the best of my ability. This note is constructed using voice recognition software. While every effort has been made to ensure accuracy, chief dog license inspector errors may have been included. Orders: Orders US pelvic and transvaginal 09/07/25 D21.9 - Benign neoplasm of connective and other soft tissue, unspecified Coding Level of Care Code Est Pt Level 3 (02312) Diagnoses Thickened endometrium R93.89 Fibroid D21.9
[2025-04-01 09:29] VITALS: BMI 23.7
--- OUTSIDE RECORDS SUMMARY | 2025-04-01 09:49 | XMS_ITS | Clinical Summary ---
Author Organization [facility] [address] [place] [address] Address [address] [place], [place] Phone Care Team Providers Care Rail Manager Name Role Phone Dank Jones MD Primary [...] 11:15 AM EDT Office Visit Endocrinology - [address] [phone] Nakia Hill MD Hyperthyroidism (Primary Dx) 01/21/2025 8:20 AM EDT Office Visit [address] [phone] Rosemary Chaney PA Hyperthyroidism (Primary Dx) 01/06/2025 Telephone Endocrinology [address] [phone] Esme Ramos RN from Last 3 Months Social History [...] 9:45 AM EDT Office Visit Endocrinology - [address] [phone] Nakia Hill MD [address] [place] [id number] Health Maintenance Due Date Last Done Comments [...] LAB CHEMISTRY METHOD 03/04/2025 3:12 PM EDT [facility] ([facility] Blood Venous blood specimen / Unknown Venipuncture / Unknown 03/04/2025 10:55 AM EDT 03/04/2025 10:55 AM EDT Nakia Hill MD LAB BLOOD ORDERABLES Final Resul t Performing Organization Address City/[facility]/ZIP Co de Phone Number [facility] [address] [place] [address], [place] [phone] * Thyroxine free (03/04/2025 10:55 AM EDT) Only the most recent of2 resultswithin the time period is included. Free T4 1.45 0.70 - 1.80 ng/dL LAB CHEMISTRY METHOD 03/04/2025 3:10 PM EDT [facility] Blood Venous blood specimen / Unknown Venipuncture / Unknown 03/04/2025 10:55 AM EDT 03/04/2025 10:55 AM EDT Nakia Hill MD LAB BLOOD ORDERABLES Final Resul t Performing Organization Address [facility] Co de Phone Number [facility] [address] [place] [address], * HCG, serum, qualitative (01/26/2025 10:51 AM EDT) Pathologist [facility] hCG Qual Negative Negative 01/26/2025 2:14 PM EDT [facility] Blood Venous blood specimen / Unknown Venipuncture / Unknown 01/26/2025 10:51 AM EDT 01/26/2025 10:51 AM EDT us Rosemary SERNA LAB BLOOD ORDERABLES Final Resul t Performing Organization Address City/[facility]/ZIP Co de Phone Number [facility] [address] [place] [address], [place] [phone] * Triiodothyronine free (01/26/2025 10:51 AM EDT) T3, Free 324 230 - 420 pcg/dL LAB CHEMISTRY METHOD 01/26/2025 2:29 PM EDT [facility] ([facility] [[email or web address] Blood Venous blood specimen / Unknown Venipuncture / Unknown 01/26/2025 10:51 AM EDT 01/26/2025 10:51 AM EDT Rosemary SERNA LAB BLOOD ORDERABLES Final Resul t [facility] ([facility] [[email or web address] [address] [place] [address], [place] [phone] * External Nuc Med Report (01/05/2025) Anatomical Region Laterality Modality Nuclear Medicine us Provider [facility] NM PROCEDURES Final Result from Last 3 Months Insurance [facility] [employer] Care Teams Rail Manager Relationship Specialty Start Date End Date Dank Jones MD [address] [place] [address] Dr [address] [place] PCP - General 01/03/24
== END 2025-04-01 11:08 | disposition home or self-care (01) ==
LOC: HO.HWS 09:26
PROVIDERS: PCP Internal Medicine; Visit Provider Advanced Practice Midwife
DX: R93.89 Abnormal findings on diagnostic imaging of other specified body structures (principal); D21.9 Benign neoplasm of connective and other soft tissue, unspecified
CPT/HCPCS: 99213

== ENCOUNTER → 2025-04-01 09:26 | Outpatient (BNVA) | payer OTHER, SELFPAY | PROVIDERS: PCP Internal Medicine; Visit Provider Advanced Practice Midwife | DX: R93.89 Abnormal findings on diagnostic imaging of other specified body structures (principal); D21.9 Benign neoplasm of connective and other soft tissue, unspecified | CPT/HCPCS: 99212 ==

== ENCOUNTER 2025-04-21 12:20 | Outpatient (AMB) | payer OTHER, SELFPAY ==
[2025-04-21 12:23] VITALS: BP 108/64; PULSE 60; TEMP 36.2; O2SAT 98; BMI 22.8
--- NOTE | 2025-04-21 12:23 | A.OFFPC_ITS ---
Vital Signs 04/21/25 12:23 Height 5 ft 6 in Weight 141 lb 2 oz BMI 22.8 BP 108/64 Blood Pressure Location Lt brachial Position Sitting Pulse 60 Pulse Source Pulse Oximeter Temp 97.1 F Temp Source Temporal Artery Scan Pulse Oximetry (%) 98 Oxygen Delivery Method Room Air Intake Visit Reasons: Graves disease Allergies No Known Allergies Allergy (Verified 04/21/25 13:17) Medication List - Last Reconciled 04/21/25 by Dank Jones MD ammonium lactate 5% (Lac-Hydrin Five) 1 appl topical BID PRN clobetasol 0.05% 1 appl topical BID 2 weeks clotrimazole-betamethasone 1-0.05 % 1 appl topical BID 7 days hydrocortisone-acetic acid 1-2 % 4 drps otic (ear) right TID 7 days triamcinolone acetonide 0.1% 1 appl topical BID Tobacco use date assessed: 04/21/25 Dental Screening Dental Screen Date: 04/21/25 Did you have a dental visit in the last 12 months?: No Did you have a dental problem in the last 6 months where you did not have access to dental care?: No Was dental information given to patient?: Patient declined HPI Graves disease HPI Details Patient comes in today for her follow up visit States that she feels okay She denies any headaches or dizziness Denies any chest pains, no SOB No nausea/vomiting, no abdominal pain No change in bowel habits noted She would like to know how she did on her labs done back in September 2024 She is also currently no longer taking Methimazole as she apparently underwent KHAN ablation of her thyroid gland at [facility] a couple of months ago [facility] Medical History Pure hypercholesterolemia Fibroid Thickened endometrium Lesion of cervix Abnormal uterine bleeding (AUB) Vulvar itching Hyperthyroidism Multiple thyroid nodules Atopic dermatitis Goiter Surgical History No pertinent past surgical history Social History Household Members: Spouse and Children Housing: Apartment Alcohol intake: current Alcohol intake frequency: 0-2 drinks per day Patient Tobacco Use Status: Never used Tobacco e-Cigarette/Vaping Use: Never Used service: No Current occupational status: employed 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 1. Little interest or pleasure in doing things: not at all 2. Feeling down, depressed, or hopeless: not at all 3. Trouble falling or staying asleep, or sleeping too much: several days 4. Feeling tired or having little energy: several days 5. Poor appetite or overeating: not at all 6. Feeling bad about yourself - or that you are a failure or have let yourself or your family down: not at all 7. Trouble concentrating on things, such as reading the newspaper or watching television: not at all 8. Moving or speaking so slowly that other people could have noticed. Or the opposite - being so fidgety or restless that you have been moving around a lot more than usual: not at all 9. Thoughts that you would be better off or of hurting yourself in some way: not at all Total score: 2 Depression Screening Interpretation: Negative Depression Screening Done: Yes 48970 - PHQ-9 Billing: Yes Source: Developed by Drs. Rubio Ge, Joan Koehler, Mark Wilson and colleagues, with an educational alanis from [employer]. Thrive Questionnaire Date Thrive assessed: 10/06/24 I am a: Patient What is your living situation today?: I choose not to answer this question Within the past 12 months, did the food you bought not last and you didn't have the money to get more?: I choose not to answer this question Within the past 12 months, did you worry whether your food would run out before you got money to buy more?: I choose not to answer this question Do you have trouble paying for medicines?: I choose not to answer this question Do you have trouble getting transportation to medical appointments?: I choose not to answer this question Do you have trouble paying your heating and electricity bill?: I choose not to answer this question Do you have trouble taking care of your child, family member or friend?: I choose not to answer this question Do you have trouble with day-to-day activities such as bathing, preparing meals, shopping, managing finances, etc.?: I choose not to answer this question Are you currently unemployed and looking for a job?: I choose not to answer this question Are you interested in more education?: I choose not to answer this question Please select the resources that you would like help with: None Currently or been in a relationship where the following occur: I choose not to answer THRIVE Score: 0 AUDIT C Alcohol Use Questionnaire (AUDIT-C) 1. How often do you have a drink containing alcohol?: Never 3. How often do you have six or more drinks on one occasion?: Never Total Score: 0 Score Reviewed/Action Taken: Yes BANG-7 AMB Questionnaire BANG-7 Date BANG - 7 assessed: 10/08/24 Feeling nervous, anxious, or on edge: 0 = Not at all Not being able to stop or control worryin = Not at all Worrying too much about different things: 0 = Not at all Trouble relaxin = Not at all Being so restless that it is hard to sit still: 0 = Not at all Becoming easily annoyed or irritable: 0 = Not at all Feeling afraid as if something awful might happen: 0 = Not at all Total BANG-7 score (0-4 normal; 5-9 mild; 10-14 moderate; 15-21 severe): 0 Source: Developed by Drs. Rubio Ge, Joan Koehler, Mark Wilson and colleagues, with an educational alanis from [employer]. Review of Systems Const Denies chills, Denies fatigue, Denies fever(s) and Denies headache(s) ENT Denies dysphagia, Denies dizziness, Denies headache(s), Denies neck pain, Denies odynophagia and Denies sore throat Card Denies chest pain, Denies rapid heart rate, Denies irregular heart rhythm, Denies palpitations and Denies dyspnea Resp Denies chest congestion, Denies cough and Denies dyspnea GI Denies abdominal pain, Denies constipation, Denies dysphagia, Denies heartburn, Denies diarrhea, Denies nausea, Denies odynophagia and Denies vomiting Denies urinary frequency, Denies dysuria and Denies urinary incontinence Musc Denies back pain, Denies arthralgias and Denies neck pain Skin/Breast Denies rash Neuro Denies dizziness, Denies headache(s) and Denies paresthesias Psych Denies anxiety and Denies depression Endo Denies fatigue and Denies palpitations Noé/Lymph Denies easy bruising Physical exam (Primary Care) Vital Signs: Last Vital Signs Temp 97.1 F 04/21/25 12:23 Pulse 60 04/21/25 12:23 BP 108/64 04/21/25 12:23 Pulse Ox 98 04/21/25 12:23 Oxygen Delivery Method Room Air 04/21/25 12:23 BMI result Body Mass Index 22.8 Tobacco/Smoking Status: Tobacco use Status Tobacco use date assessed 04/21/25 04/21/25 12:27 Patient Tobacco Use Status Never used Tobacco 04/21/25 12:27 e-Cigarette/Vaping Use Never Used 04/21/25 12:27 PHQ-9: PHQ-9 Score PHQ-9: Total score 2 04/21/25 12:27 Depression Screening Interpretation: Negative Thrive Assessment: Date of Thrive Assessment Date Thrive assessed 10/06/24 04/21/25 12:27 Currently or been in a relationship where the following occur: I choose not to answer Const General: no acute distress and alert HENMT Ears: TM's normal bilaterally and EAC's normal Throat: Yes posterior oropharynx normal and Yes tonsils normal (no TP congestion) Neck Neck: Yes supple and No lymphadenopathy Thyroid: diffusely enlarged and nontender Resp Auscultation: clear to auscultation bilaterally, no rales and no wheezes Cardio Rate: regular rate Rhythm: regular rhythm Heart sounds: no murmurs GI Palpation (GI): Soft to palpation and nontender Auscultation: normal bowel sounds General: Yes no CVA tenderness Back/Spine/Pelvis Back: no CVA tenderness Thoracic/Lumbar Spine: No lumbar spinal tenderness Skin Rashes: no rashes Extrem General: Yes no clubbing, cyanosis or edema Results Reviewed Results Reviewed: Laboratory Tests 10/08/24 10/08/24 10:27 10:32 WBC 5.2 Hgb 14.8 Hct 44.6 Plt Count 188 D Sodium 141 Potassium 3.8 Creatinine 0.67 Estimated GFR > 60 Fasting Glucose 91 Calcium 9.1 AST 29 ALT 27 Triglycerides 68 Cholesterol 241 H LDL Cholesterol, Calc 152 H HDL Cholesterol 76 25-OH Vitamin D Total 42.2 TSH 1.84 Free T4 1.04 Ur Specific [place] 1.010 Urine Protein Negative Urine Glucose (UA) Negative Urine Blood Negative Urine Nitrite Negative Ur Leukocyte Esterase Large (3+) H Coding Level of Care Code Est Pt Level 4 (75873) Diagnoses Pure hypercholesterolemia E78.00 Hyperthyroidism E05.90 Atopic dermatitis, unspecified type L20.9 Atopic dermatitis type: unspecified Thickened endometrium R93.89 Additional Codes PHQ-9 - 29995 - PHQ-9 Billing: Yes ([id number]) Assessment & Plan Assessment & Plan (1) Pure hypercholesterolemia: Code(s): E78.00 - Pure hypercholesterolemia, unspecified Category: Medical Plan: Results of her labs done back in September 2024 reviewed and discussed with patient - have advised her that her cholesterol levels, specifically her LDL cholesterol, has increased significantly from last year Reinforced low cholesterol diet Will have patient recheck her labs and fasting lipids in 6 months for follow up (2) Hyperthyroidism: Comment: Graves' disease Code(s): E05.90 - Thyrotoxicosis, unspecified without thyrotoxic crisis or storm Category: Medical Plan: Thyroid uptake scan done at [facility] reportedly revealed (+) homogenous and symmetric increased uptake of the entire thyroid gland, with 24-hour uptake measured at 59.5%, consistent with Graves' disease She also tested positive for thyroid antibodies She underwent and completed radioactive iodine Tx/ablation at [facility] a few months ago and she is now OFF Methimazole (was taking it previously at 5 mg QD) Her last TSH level was reportedly borderline high but currently does not require thyroid hormone replacement yet but have reminded patient that at some point, she will likely need to be started on and will require lifelong thryoid hormone replacement therapy Follow up with Endocrinology at [place] for continuing management of her Graves' disease (3) Atopic dermatitis: Code(s): L20.9 - Atopic dermatitis, unspecified Category: Medical Qualifiers: Atopic dermatitis type: unspecified Qualified Code(s): L20.9 - Atopic dermatitis, unspecified Plan: Continue Clobetasol 0.05% cream BID PRN (4) Thickened endometrium: Code(s): R93.89 - Abnormal findings on diagnostic imaging of other specified body structures Category: Medical Plan: Pelvic US done earlier this year (September 2024) revealed (+) retroverteduterus with a fundal fibroid, thickened endometrium and normal ovaries/adnexa She is scheduled to see Dr. Faulkner tomorrow for consultation regarding possible hysteroscopy for further evaluation of her finding of a thickened endometrium on her pelvic sonogram Plan To return in 6 months for her next annual physical examination Orders: Orders Comprehensive [place]. Panel Fast 6 Months E78.00 - Pure hypercholesterolemia, unspecified, Z00.00 - Encounter for general adult medical examination without abnormal findings Thyroid Stimulating Hormone 6 Months E03.9 - Hypothyroidism, unspecified, Z00.00 - Encounter for general adult medical examination without abnormal findings Free T4 (Free Thyroxine) 6 Months E03.9 - Hypothyroidism, unspecified, Z00.00 - Encounter for general adult medical examination without abnormal findings UA CC w/rflx Micro + Cult 6 Months R30.0 - Dysuria, Z00.00 - Encounter for general adult medical examination without abnormal findings Complete Blood Count Auto Diff 6 Months D64.9 - Anemia, unspecified, Z00.00 - Encounter for general adult medical examination without abnormal findings Lipid Panel 6 Months E78.00 - Pure hypercholesterolemia, unspecified, Z00.00 - Encounter for general adult medical examination without abnormal findings Vitamin D 25-OH Total 6 Months E55.9 - Vitamin D deficiency, unspecified, Z00.00 - Encounter for general adult medical examination without abnormal findings
--- OUTSIDE RECORDS SUMMARY | 2025-04-21 13:08 | XMS_ITS | Clinical Summary ---
Author Organization [facility] [address] [place] [address] Address [address] [place], [place] Phone Care Team Providers Care Wheelchair Van Driver Name Role Phone Dank Jones MD Primary Care Provider [phone] Allergies No known active allergies Medications triamcinolone [...] 03/05/2025 11:15 AM EDT Office Visit Endocrinology [address] [phone] Nakia Hill MD Hyperthyroidism (Primary Dx) 01/21/2025 8:20 AM EDT Office Visit [address] [phone] Rosemary Chaney PA Hyperthyroidism (Primary Dx) from Last 3 Months Social History Tobacco [...] Description 04/23/2025 9:45 AM EDT Office Visit [facility] [address] [place] [address] Nakia Hill MD [address] [place] [address] Health Maintenance Due Date Last Done Comments [...] FREE Routine 01/26/2025 10:51 AM EDT Hyperthyroidism from Last 3 Months Results * Thyroid stimulating hormone (03/04/2025 10:55 AM EDT) Only the most recent of2 resultswithin the time period is included. TSH 2.46 0.40 - 4.00 mcIU/mL LAB CHEMISTRY METHOD 03/04/2025 3:12 PM EDT [facility] Blood Venous blood specimen / Unknown Venipuncture / Unknown 03/04/2025 10:55 AM EDT 03/04/2025 10:55 AM EDT Nakia Hill MD LAB BLOOD ORDERABLES Final Resul t [facility] [address] [place] [address], * Thyroxine free (03/04/2025 10:55 AM EDT) Only the most recent of2 resultswithin the time period is included. Free T4 1.45 0.70 - 1.80 ng/dL LAB CHEMISTRY METHOD 03/04/2025 3:10 PM EDT [facility] Blood Venous blood specimen / Unknown Venipuncture / Unknown 03/04/2025 10:55 AM EDT 03/04/2025 10:55 AM EDT Nakia Hill MD LAB BLOOD ORDERABLES Final Resul t Performing Organization Address [facility] de Phone Number [facility] [address] [place] [address], * HCG, serum, qualitative (01/26/2025 10:51 AM EDT) Pathologist [facility] hCG Qual Negative Negative 01/26/2025 2:14 PM EDT [facility] Blood Venous blood specimen / Unknown Venipuncture / Unknown 01/26/2025 10:51 AM EDT 01/26/2025 10:51 AM EDT Rosemary SERNA LAB BLOOD ORDERABLES Final Resul t Performing Organization Address [facility] Co de Phone Number [facility] [address] [place] [address], [place] [phone] * Triiodothyronine free (01/26/2025 10:51 AM EDT) T3, Free 324 230 - 420 pcg/dL LAB CHEMISTRY METHOD 01/26/2025 2:29 PM EDT [facility] Blood Venous blood specimen / Unknown Venipuncture / Unknown 01/26/2025 10:51 AM EDT 01/26/2025 10:51 AM EDT us Rosemary SERNA LAB BLOOD ORDERABLES Final Resul t [facility] [address] [place] [address], [place] [phone] from Last 3 Months Insurance [facility] [employer] Care Teams Wheelchair Van Driver Relationship Specialty Start Date End Date Dank Jones MD [address] [place] [address] Dr Lynn [address] [place] [address] [place] PCP - General 01/03/24
== END 2025-04-21 12:57 | disposition home or self-care (01) ==
LOC: HO.HMCH 12:20
PROVIDERS: PCP Internal Medicine; Visit Provider Internal Medicine
DX: E78.00 Pure hypercholesterolemia, unspecified (principal); E05.90 Thyrotoxicosis, unspecified without thyrotoxic crisis or storm; L20.9 Atopic dermatitis, unspecified; R93.89 Abnormal findings on diagnostic imaging of other specified body structures

== ENCOUNTER → 2025-04-21 12:20 | Outpatient (BNVA) | payer OTHER, SELFPAY | PROVIDERS: PCP Internal Medicine; Visit Provider Internal Medicine | DX: E05.90 Thyrotoxicosis, unspecified without thyrotoxic crisis or storm (principal); E78.00 Pure hypercholesterolemia, unspecified; L20.9 Atopic dermatitis, unspecified; R39.89 Other symptoms and signs involving the genitourinary system; E55.9 Vitamin D deficiency, unspecified; D64.9 Anemia, unspecified; R30.0 Dysuria | CPT/HCPCS: 96127; 99212 ==

== ENCOUNTER 2025-04-22 10:36 | Outpatient (AMB) | payer OTHER, SELFPAY ==
--- NOTE | 2025-04-22 10:42 | A.OFFVIS_ITS ---
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 The patient has been experiencing abnormal uterine bleeding. The following workup was done so far: 10/21 H&H= 14.8/44.6 10/21 TSH within normal 02/18 GC/CT negative 02/18 co testing negative 03/20 Pelvic ultrasound showed the following: Retroverted uterus, normal size and echotexture, measuring 9.6 x 5.7 x 7.3 cm. Incidental nabothian cysts. Well defined heterogeneous endometrium, measuring 18 mm in thickness. Thickened endometrium with feeder vessels present. Uterine fibroid: Right fundal intramural 2.6 x 1.6 x 3.3 cm The right ovary measures, 3.2 x 1.3 x 1.4 cm. Normal sonographic appearance right ovary. The left ovary measures, 4.2 x 1.5 x 2.7 cm. Normal sonographic appearance left ovary. No adnexal masses or fluid collections. Trace free fluid right adnexa [facility] Medical History (Updated 04/22/25 @ 10:56 by Toni Faulkner MD) Pure hypercholesterolemia Fibroid Thickened endometrium Lesion of cervix Abnormal uterine bleeding (AUB) Vulvar itching Hyperthyroidism Multiple thyroid nodules Atopic dermatitis Goiter Surgical History No pertinent past surgical history Social History Household Members: Spouse and Children Housing: Apartment Alcohol intake: current Alcohol intake frequency: 0-2 drinks per day Patient Tobacco Use Status: Never used Tobacco e-Cigarette/Vaping Use: Never Used service: No Current occupational status: employed 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 Current occupational exposures/hazards: No Sexual orientation: Straight/Heterosexual Gender identity: Female Cognitive needs: No Hearing needs: No Vision needs: No Female Reproductive History Menstrual Age of Menarche: 14 Date of last menstrual period: 06/24/20 Total pregnancies: 2 Full term: 2 Review of Systems Card Reports as per HPI and Reports no additional complaints Resp Reports as per HPI and Reports no additional complaints GI Reports as per HPI and Reports no additional complaints Reports as per HPI Physical Exam Const General: cooperative, healthy appearing and comfortable Resp Effort & Inspection: normal respiratory effort Auscultation: clear to auscultation bilaterally Percussion: percussion normal Cardio Palpation: normal PMI Rate: regular rate Rhythm: regular rhythm Heart sounds: no murmurs and no rubs Peripheral pulses: Peripheral pulses 2+ throughout GI Inspection: Yes normal to inspection Palpation (GI): Soft to palpation, nontender, no guarding, not rigid and No hepatosplenomegaly present Percussion: Yes normal to percussion Auscultation: normal bowel sounds Rectal Exam - Female: deferred Assessment & Plan Assessment & Plan (1) Abnormal uterine bleeding (AUB): Comment: Endometrial polyp by ultrasound Code(s): N93.9 - Abnormal uterine and vaginal bleeding, unspecified Category: Medical Plan: CBC, TSH, hCG ordered. Discussed with the patient the results of her ultrasound with the possibility of endometrial polyp , recommended hysteroscopy D&C possible polypectomy/myomectomy for diagnostic/therapeutic purposes for endometrial polyp and for endometrial sampling purposes to rule out endometrial pathology as a cause of her AUB including endometrial hyperplasia and/or malignancy. Discussed with the patient the procedure , all benefits and risks including but not limited to inability to complete the procedure , insufficient endometrial tissue for a complete evaluation of the endometrial cavity , bleeding, infection, possible need for blood transfusion with all its risk ( HIV,syphilis, Hepatitis, anaphylaxis shock, others..), injury to bladder, rectum, possible need for laparoscopy/laparotomy or hysterectomy. The patient verbalized understanding and signed the consent. Instructions given the patient to stay NPO after midnight the day prior to the procedure and to take only the specific medication (s) discussed the morning of the surgical procedure and to schedule a 2 week postoperative appointment (2) Uterine myoma: Code(s): D25.9 - Leiomyoma of uterus, unspecified Category: Medical Plan: Discussed with the patient the findings on pelvic ultrasound & the risk of myosarcoma; in addition reviewed with the patient that malignancy and pre malignancy cannot be ruled out without hysterectomy for pathological evaluation ; furthermore, explained to the patient the limitation of pelvic ultrasound and endometrial biopsy in the setting. Discussed with the patient the options of treatment including expectant ma nagement versus hysterectomy; the pros and cons, risks benefits of each approach were discussed with the patient including the fact that in cases of myosarcoma, surgical treatment can lead to early diagnosis and positively affects the prognosis; after further discussion, the patient decided to proceed with expectant management. Will repeat pelvic ultrasound periodically. Instructions given to patient to call in case any of the following occurs: pressure symptoms, abnormal uterine bleeding, pelvic pain; and to schedule a six-months pelvic ultrasound (order placed) and a follow-up appointment . All questions answered, the patient verbalized understanding and agreed with the plan . Orders: Orders Complete Blood Count no Diff Today N93.9 - Abnormal uterine and vaginal bleeding, unspecified TSH reflex Free T4 Today N93.9 - Abnormal uterine and vaginal bleeding, unspecified US pelvic and transvaginal 6 Months D25.9 - Leiomyoma of uterus, unspecified Coding Level of Care Code Est Pt Level 3 (85550) Diagnoses Abnormal uterine bleeding (AUB) N93.9 Uterine myoma D25.9
--- OUTSIDE RECORDS SUMMARY | 2025-04-22 11:28 | XMS_ITS | Clinical Summary ---
Author Organization [facility] [address] [place] [address] Address [address] [place], [place] Phone Care Team Providers Care Network Control Technician Name Role Phone Dank Jones MD Primary Care Provider [phone] Allergies No known active allergies Medications triamcinolone [...] 03/05/2025 11:15 AM EDT Office Visit Endocrinology [address] [phone] Nakia Hill MD Hyperthyroidism (Primary Dx) 01/21/2025 8:20 AM EDT Office Visit [address] [phone] Rosemary Chaney PA Hyperthyroidism (Primary Dx) from [...] Description 04/23/2025 9:45 AM EDT Office Visit [facility] [address] [place] [phone] Nakia Hill MD [address] [place] [address] Health Maintenance Due Date Last Done Comments [...] LAB CHEMISTRY METHOD 03/04/2025 3:12 PM EDT [facility] Blood Venous blood specimen / Unknown Venipuncture / Unknown 03/04/2025 10:55 AM EDT 03/04/2025 10:55 AM EDT Nakia Hill MD LAB BLOOD ORDERABLES Final Resul t [facility] [address] [place] [address], * Thyroxine free (03/04/2025 10:55 AM EDT) Only the most recent of2 resultswithin the time period is included. Free T4 1.45 0.70 - 1.80 ng/dL LAB CHEMISTRY METHOD 03/04/2025 3:10 PM EDT [facility] Blood Venous blood specimen / Unknown Venipuncture / Unknown 03/04/2025 10:55 AM EDT 03/04/2025 10:55 AM EDT Nakia Hill MD LAB BLOOD ORDERABLES Final Resul t Performing Organization Address [facility] de Phone Number [facility] [address] [place] [address], * HCG, serum, qualitative (01/26/2025 10:51 AM EDT) Pathologist [facility] hCG Qual Negative Negative 01/26/2025 2:14 PM EDT [facility] Blood Venous blood specimen / Unknown Venipuncture / Unknown 01/26/2025 10:51 AM EDT 01/26/2025 10:51 AM EDT Rosemary SERNA LAB BLOOD ORDERABLES Final Resul t Performing Organization Address [facility] Co de Phone Number [facility] [address] [place] [address], [place] [phone] * Triiodothyronine free (01/26/2025 10:51 AM EDT) T3, Free 324 230 - 420 pcg/dL LAB CHEMISTRY METHOD 01/26/2025 2:29 PM EDT [facility] Blood Venous blood specimen / Unknown Venipuncture / Unknown 01/26/2025 10:51 AM EDT 01/26/2025 10:51 AM EDT us Rosemary SERNA LAB BLOOD ORDERABLES Final Resul t [facility] [address] [place] [address], [place] [phone] from Last 3 Months Insurance [facility] [employer] Care Teams Network Control Technician Relationship Specialty Start Date End Date Dank Jones MD [address] [place] [address] Dr Lynn [address] [place] [address] [place] PCP - General 01/03/24
== END 2025-04-22 11:17 | disposition home or self-care (01) ==
LOC: HO.HWS 10:36
PROVIDERS: PCP Internal Medicine; Visit Provider Obstetrics & Gynecology
DX: N93.9 Abnormal uterine and vaginal bleeding, unspecified (principal); D25.9 Leiomyoma of uterus, unspecified
CPT/HCPCS: 99213

== ENCOUNTER → 2025-04-22 10:36 | Outpatient (BNVA) | payer OTHER, SELFPAY | PROVIDERS: PCP Internal Medicine; Visit Provider Obstetrics & Gynecology | DX: N93.9 Abnormal uterine and vaginal bleeding, unspecified (principal); D25.9 Leiomyoma of uterus, unspecified | CPT/HCPCS: 99212 ==

== ENCOUNTER 2025-05-15 08:00 | Day surgery (SDC) | payer OTHER, SELFPAY ==
[2025-05-13 07:50] VITALS: BMI 22.8
--- NOTE | 2025-05-13 11:16 | HO.ANESPROP2 ---
Documented by User: Tameka Raymond NP 05/13/25 11:16 HPI - Anesthesia Eval Consult details Narrative: 34 yr old female for D&C Hysteroscopy,possible myomectomy,possible polymectomy Graves disease [facility] Active Problems Active Problems: All Active Problems (Updated 04/22/25 @ 10:56 by Toni Faulkner MD) Uterine myoma (Acute) Pure hypercholesterolemia (Acute) Fibroid (Acute) Thickened endometrium (Acute) Lesion of cervix (Acute) Abnormal uterine bleeding (AUB) (Acute) Vulvar itching (Acute) Encounter for well woman exam with routine gynecological exam (Acute) Keratoderma of foot, acquired (Acute) Hyperthyroidism (Acute) Eczematoid otitis externa of right ear (Acute) Bronchitis (Acute) Multiple thyroid nodules (Acute) Respiratory tract infection (Acute) Atopic dermatitis (Acute) Goiter (Acute) Enlarged thyroid (Acute) Vaginal discharge (Acute) Cervical cancer screening (Acute) Annual physical exam (Acute) Past Medical History Medical History (Updated 04/22/25 @ 10:56 by Toni Faulkner MD) Pure hypercholesterolemia Fibroid Thickened endometrium Lesion of cervix Abnormal uterine bleeding (AUB) Vulvar itching Hyperthyroidism Multiple thyroid nodules Atopic dermatitis Goiter Surgical History Surgical History No pertinent past surgical history Social History Social History Household Members: Spouse and Children Housing: Apartment Alcohol intake: current Alcohol intake frequency: holidays/special occasions only Patient Tobacco Use Status: Never used Tobacco e-Cigarette/Vaping Use: Never Used Use of substances other than those prescribed or required for medical reasons: No Are you DNR?: No Advance Directives: No Advance Directives Information Provided: Yes : No Poor oral hygiene: No service: No Current occupational status: employed 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 Current occupational exposures/hazards: No Sexual orientation: Straight/Heterosexual Gender identity: Female Cognitive needs: No Hearing needs: No Vision needs: No Meds Allergies Allergy/AdvReac Type Severity Reaction Status Date / Time No Known Allergies Allergy Verified 04/21/25 13:17 Home Medications ?Medication ?Instructions ?Recorded ?Confirmed ?Last Taken ?Type levothyroxine 100 mcg tablet 100 mcg PO DAILY 05/13/25 05/13/25 Unknown History Exam Height,Weight and Vital Signs: Height 5 ft 6 in Weight 64.013 kg Documented by User: Lorrie Hayes MD 05/15/25 09:45 [facility] Past Medical History Medical History (Updated 04/22/25 @ 10:56 by Toni Faulkner MD) Pure hypercholesterolemia Fibroid Thickened endometrium Lesion of cervix Abnormal uterine bleeding (AUB) Vulvar itching Hyperthyroidism Multiple thyroid nodules Atopic dermatitis Goiter Surgical History Surgical History No pertinent past surgical history History of Problems with Anesthesia: No Social History Social History Household Members: Spouse and Children Housing: Apartment Alcohol intake: current Alcohol intake frequency: holidays/special occasions only Patient Tobacco Use Status: Never used Tobacco e-Cigarette/Vaping Use: Never Used Use of substances other than those prescribed or required for medical reasons: No Are you DNR?: No Advance Directives: No Advance Directives Information Provided: Yes : No Poor oral hygiene: No service: No Current occupational status: employed 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 Current occupational exposures/hazards: No Sexual orientation: Straight/Heterosexual Gender identity: Female Cognitive needs: No Hearing needs: No Vision needs: No Meds Allergies Allergy/AdvReac Type Severity Reaction Status Date / Time No Known Allergies Allergy Verified 04/21/25 13:17 Home Medications ?Medication ?Instructions ?Recorded ?Confirmed ?Last Taken ?Type levothyroxine 100 mcg tablet 100 mcg PO DAILY 05/13/25 05/13/25 Unknown History Exam Airway Mallampati Class: II TM Dist: >3cm Neck ROM: Full Loose/Missing/Broken Teeth: No Heart: RRR Lungs: CTA Assessment and Plan Assessment Anesthesia Assessment: Anesthesia Plan Discussed and Chart Reviewed Final Anesthetic Review History of Problems with Anesthesia: No NPO: Yes ASA Class: II Final Preanesthetic Review: Meds/Allgs Chart Reviewed, Consent Obtained/Reviewed and Anes Risks/Benef Reviewed Patient Risk: Low Procedure Risk: Low Anesthetic Plan Anesthetic Plan: GA Disposition: Standard PACU
[2025-05-15 08:23] LABS: UPreg QC Valid YES
[2025-05-15 08:31] VITALS: BMI 22.6
[2025-05-15 08:42] VITALS: BP 106/69; PULSE 59; RESP 16; TEMP 36.9; O2SAT 100
--- NOTE | 2025-05-15 08:53 | PC.NURSE ---
SCHEDULED NIKOLAY LICENSED LIFE AND HEALTH AGENT BY THE BEDSIDE.
[2025-05-15] MEDS: Lactated Ringers 1,000 ML 100 ML IVCONT (08:54)
--- NOTE | 2025-05-15 09:02 | MHC.SHP ---
Pre-Procedural Eval Section A - 24 Hr Update-Section A only Date of Service: 05/15/25 The patient is an INPATIENT: No Changes since office visit: No Cold of Flu in the past 2 weeks, No New Medical Problems, No Changes in Medication and No Patient answered all questions The patient has been examined within 24 hours of the surgical procedure. The History & Physical has been completed within 30 days and I have reviewed it.: Yes Section B - Complete if H&P > 30 days Chief Complaint: abnormal uterine and vaginal bleeding Allergies: Allergies Allergy/AdvReac Type Severity Reaction Status Date / Time No Known Allergies Allergy Verified 04/21/25 13:17 Plan Diagnosis/Plan: Unchanged I have reviewed the history and physical and performed a pertinent physical examination on my patient. No changes have occurred unless specified. Time Spent With Patient Time: Total time managing care of this patient today ____ minutes.
--- NOTE | 2025-05-15 10:23 | PM.OP ---
Brief Operative Note Date of Service: 05/15/25 Pre-op diagnosis: Endometrial polyp by ultrasound Post-op diagnosis: same (Normal endometrial cavity) Procedure: Hysteroscopy D&C Surgeon: Toni Faulkner MD Anesthesia: GLMA Was an Log Truck Driver used for this Procedure?: No Estimated blood loss (mL): 0 Pathology: other (Endometrial Scrapping) Condition: stable Disposition: PACU
--- NOTE | 2025-05-15 10:24 | P.OP_ITS ---
Operative Note Operative Note Date of Service: 05/15/25 Narrative: Preop Diagnosis: Endometrial polyp by ultrasound Operation: Diagnostic Hysteroscopy, Dilataion & Curettage Post Op Diagnosis: Normal endometrial and endocervical cavity, no evidence of pathology QBL: Minimal Anesthesia: GLMA Surgeon: Toni Faulkner MD Silver Miner Blasting: None Complication: None Pathology: Endometrial Scrapings Procedure: The patient was put in the dorsal lithotomy position, scrubbed, and draped in the usual manner. A sterile speculum was inserted in the patient's vagina. The anterior lip of the cervix was grasped with a single tooth tenaculum. The cervix was dilated up to 5 mm, then the scope was inserted in the patient's uterus. Inspection revealed normal endocervical & endometrial cavity with no evidence of pathology. The scope was taken out of the uterine cavity , then sharp curetting was carried on with no complications. At the end of the procedure, all instruments were taken out of the patient uterine and vaginal cavity. The single tooth tenaculum was removed and homeostasis was assured using pressure. The patient tolerated the procedure well and was transferred to the PACU in a stable condition.
[2025-05-15 10:28] VITALS: BP 111/51; PULSE 48; RESP 18; TEMP 36.1; O2SAT 98
[2025-05-15 10:30] VITALS: BP 91/56; PULSE 49; RESP 18; O2SAT 98
[2025-05-15 10:35] VITALS: BP 96/58; PULSE 45; RESP 18; O2SAT 98
[2025-05-15 10:43] VITALS: BP 98/55; PULSE 65; RESP 16; O2SAT 99
[2025-05-15 10:58] VITALS: PULSE 65; RESP 18; TEMP 36.2; O2SAT 99
== END 2025-05-15 11:36 | disposition home or self-care (01) ==
PROVIDERS: PCP Internal Medicine; Visit Provider Obstetrics & Gynecology
PROC: 0UDB8ZZ Extraction of Endometrium, Via Natural or Artificial Opening Endoscopic (ICD-10-PCS; CPT 58558; principal; 2025-05-15 10:10)
DX: N93.9 Abnormal uterine and vaginal bleeding, unspecified (principal); D25.9 Leiomyoma of uterus, unspecified; N88.8 Other specified noninflammatory disorders of cervix uteri; E78.00 Pure hypercholesterolemia, unspecified; E05.90 Thyrotoxicosis, unspecified without thyrotoxic crisis or storm; E89.0 Postprocedural hypothyroidism; E04.2 Nontoxic multinodular goiter; Z79.899 Other long term (current) drug therapy
CPT/HCPCS: 58558; 81025; 88305

== ENCOUNTER → 2025-05-15 08:00 | Outpatient (BNV) | payer OTHER, SELFPAY | PROVIDERS: PCP Internal Medicine; Visit Provider Obstetrics & Gynecology | DX: R93.89 Abnormal findings on diagnostic imaging of other specified body structures (principal) | CPT/HCPCS: 58558 ==

== ENCOUNTER 2025-05-28 11:58 | Outpatient (AMB) | payer OTHER, SELFPAY ==
--- NOTE | 2025-05-28 12:11 | MHC.OFFVIS ---
Vital Signs 05/28/25 12:12 Height 5 ft 6 in Weight 147 lb BMI 23.7 Intake Visit Reasons: postop Allergies No Known Allergies Allergy (Verified 04/21/25 13:17) HPI Comments Details: The patient is presenting post hysteroscopy D&C no complaints minimal vaginal bleeding no feverishness chills or abdominal pain. The pathology showed the following: Endometrium, curettage: - Inactive endometrium with patchy breakdown. - Few fragments with features of endometrial polyp. - No atypia identified The following workup was done.: H&H= TSH, GC a 14.8/44.6 nd chlamydia were negative. Co testing was done was negative. Pelvic ultrasound showed the following: Retroverted uterus, normal size and echotexture, measuring 9.6 x 5.7 x 7.3 cm. Incidental nabothian cysts. Well defined heterogeneous endometrium, measuring 18 mm in thickness. Thickened endometrium with feeder vessels present. Uterine fibroid: Right fundal intramural 2.6 x 1.6 x 3.3 cm The right ovary measures, 3.2 x 1.3 x 1.4 cm. Normal sonographic appearance right ovary. The left ovary measures, 4.2 x 1.5 x 2.7 cm. Normal sonographic appearance left ovary. No adnexal masses or fluid collections. Trace free fluid right adnexa Impression: 1. Retroverteduterus with a fundal fibroid. 2. Thickened endometrium. A prominent feeder vessel is present possible endometrial polyp can be correlated with sonohysterogram. Endometrial hyperplasia versus dysplasia not excluded. 3. Normal ovaries/adnexa. [facility] Medical History (Updated 05/28/25 @ 12:18 by Toni Faulkner MD) Pure hypercholesterolemia Fibroid Thickened endometrium Lesion of cervix Abnormal uterine bleeding (AUB) Vulvar itching Hyperthyroidism Multiple thyroid nodules Atopic dermatitis Goiter Surgical History No pertinent past surgical history Social History Household Members: Spouse and Children Housing: Apartment Alcohol intake: current Alcohol intake frequency: holidays/special occasions only Patient Tobacco Use Status: Never used Tobacco e-Cigarette/Vaping Use: Never Used service: No Current occupational status: employed 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 Current occupational exposures/hazards: No Sexual orientation: Straight/Heterosexual Gender identity: Female Cognitive needs: No Hearing needs: No Vision needs: No Female Reproductive History Menstrual Age of Menarche: 14 Review of Systems Const All systems reviewed & are unremarkable except as noted in HPI and below Reports as per HPI and Reports no additional complaints GI Reports no additional complaints Reports no additional complaints Physical Exam Vital Signs: BMI result Body Mass Index 23.7 Assessment & Plan Assessment & Plan (1) Abnormal uterine bleeding (AUB): Code(s): N93.9 - Abnormal uterine and vaginal bleeding, unspecified Category: Medical Plan: Discussed with the patient the results of the work up done and options of treatment including control pills , Mirena IUD, cyclic Provera. All pros, cons, risks and benefits if each option was discussed with the patient and the patient decided to go ahead with [facility] so a more detailed discussion re: control pills including mechanism of action, benefits (regular menses, less dysmenorrhea, less risk of ovarian cancer, ...), risks ( DVT, PE, Strokes, [place], ? increased breast ca, others). Instructions were given to use a back- up method for contraception x 1st 2 weeks, and to schedule a 3 months appointment for blood pressure check (2) Uterine myoma: Code(s): D25.9 - Leiomyoma of uterus, unspecified Category: Medical Plan: Pelvic Ultrasound scheduled in few months and a follow-up appointment Medications: New desogestrel-ethinyl estradiol 0.15-0.03 mg (Apri) 1 tab PO DAILY 28 tabs 2RF 28 days Coding Level of Care Code Est Pt Level 3 (19503) Diagnoses Abnormal uterine bleeding (AUB) N93.9 Uterine myoma D25.9
[2025-05-28 12:12] VITALS: BMI 23.7
--- OUTSIDE RECORDS SUMMARY | 2025-05-28 13:43 | XMS_ITS | Clinical Summary ---
Author Organization [facility] [address] [place] [address] [place] [address] Phone Care Team Providers Care Commercial Art Instructor Name Role Phone Dank Jones MD Primary Care Provider [phone] Allergies No known active allergies Medications triamcinolone (KENALOG) 0.1 % lotion Apply topically. 5 Active acetic acid-hydrocortison e (VOSOL-HC) otic solution PLACE 4 DROPS INTO THE RIGHT EAR 3 TIMES A DAY FOR 7 DAYS 5 Active clobetasoL (OLUX) 0.05 % topical foam APPLY TO AFFECTED AREA TOPICALLY 2 TIMES A DAY FOR 2 WEEKS APPLY TO RASH ON SCALP TWICE A DAY 5 Active clotrimazole-betam ethasone (LOTRISONE) 1-0.05 % cream 1 APPL TOPICALLY 2 TIMES A DAY FOR ITCHING FOR 7 DAYS APPLY EXTERNALLY A THIN COAT TO THE AREA 5 Active levothyroxine (SYNTHROID, LEVOTHROID) 100 mcg tabletIndications: Postablative hypothyroidism Take 1 tablet (100 mcg total) by mouth 1 (one) time each day before breakfast. 45 tablet 1 5 Active Active Problems Problem Noted Date Diagnosed Date Postablative hypothyroidism 04/23/2025 Encounters Date Type Department Care Team Description 04/23/2025 9:45 AM EDT Office Visit Endocrinology [address] [phone] Nakia Hill MD Postablative hypothyroidism (Primary Dx) 03/05/2025 11:15 AM EDT Office Visit Endocrinology - [place] [address] [place] [phone] Nakia Hill MD Hyperthyroidism (Primary Dx) from Last 3 Months Social History Tobacco Use Types Packs/Day Years Used Date Smoking Tobacco: Never Smokeless Tobacco: Never Tobacco Cessation:Counseling Given: Not Answered Comments Unknown Sex and Gender Information Value Date Recorded Sex Assigned at Not on file Legal Sex Female 11:02 AM EDT Gender Identity Not on file Sexual Orientation Not on file Obstetrics History Last Filed Vital Signs Vital Sign Reading Time Taken Comments Blood Pressure 97/55 03/05/2025 11:23 AM EDT Pulse 66 04/23/2025 9:50 AM EDT Temperature 36.6 C (97.9 F) 04/23/2025 9:50 AM EDT Respiratory Rate 16 04/23/2025 9:50 AM EDT Oxygen Saturation 98% 04/23/2025 9:50 AM EDT Inhaled Oxygen Concentration - - Weight 65.3 kg (144 lb) 04/23/2025 9:50 AM EDT Height 167.6 cm (5' 6 ) 04/23/2025 9:50 AM EDT Body Mass Index 23.24 04/23/2025 9:50 AM EDT Plan of Treatment Upcoming Encounters Date Type Department Care Team (Late st Contact Info) Description 06/04/2025 9:45 AM EDT Office Visit Endocrinology - [place] [address], [place] [phone] Nakia Hill MD [address] [place] [id number] Health Maintenance Due Date Last Done Comments DTaP,Tdap,and Td Vaccines (1 - Tdap) 2008 Hepatitis B Vaccines (1 of 3 - 19+ 3-dose series) 2008 Cervical Cancer Screening: P ap Smear 2010 HIV Screening 03/21/2024 Hepatitis C Screening 03/21/2024 Social Influencers of Health Screening 03/21/2024 Depression Screening 08/27/2024 COVID-19 Vaccine (2023-2 5 season) 2025 Influenza Vaccine (#1) 2025 HIB Vaccines Aged [...] Associated Diagnosis Comments THYROID STIMULATING HORMONE Routine 04/22/2025 10:19 AM EDT Hyperthyroidism THYROXINE FREE Routine 04/22/2025 10:19 AM EDT Hyperthyroidism THYROXINE FREE Routine 03/04/2025 10:55 AM EDT History of hypothyroidism THYROID STIMULATING HORMONE Routine 03/04/2025 10:55 AM EDT History of hypothyroidism from Last 3 Months Results * (ABNORMAL) Thyroid stimulating hormone (04/22/2025 10:19 AM EDT) Only the most recent of2 resultswithin the time period is included. TSH 50.72(H) 0.40 - 4.00 mcIU/mL LAB CHEMISTRY METHOD 04/22/2025 1:01 PM EDT [facility] Blood Venous blood specimen / Unknown Venipuncture / Unknown 04/22/2025 10:19 AM EDT 04/22/2025 10:19 AM EDT Nakia Hill MD LAB BLOOD ORDERABLES Final Resul t Performing Organization Address City/[facility]/ZIP Co de Phone Number [facility] [address] [place] [address], [place] [phone] * Thyroxine free (04/22/2025 10:19 AM EDT) Only the most recent of2 resultswithin the time period is included. Free T4 0.84 0.70 - 1.80 ng/dL LAB CHEMISTRY METHOD 04/22/2025 1:01 PM EDT [facility] Blood Venous blood specimen / Unknown Venipuncture / Unknown 04/22/2025 10:19 AM EDT 04/22/2025 10:19 AM EDT Nakia Hill MD LAB BLOOD ORDERABLES Final Resul t Performing Organization Address City/[facility]/ZIP Co de Phone Number [facility] [address] [place] [address], [place] [phone] from Last 3 Months Insurance [facility] [place] [address] Care Teams Commercial Art Instructor Relationship Specialty Start Date End Date Dank Jones MD [address] [place] [address] [place] [address] PCP - General 01/03/24
== END 2025-05-28 12:49 | disposition home or self-care (01) ==
LOC: HO.HWS 11:59
PROVIDERS: PCP Internal Medicine; Visit Provider Obstetrics & Gynecology
DX: N93.9 Abnormal uterine and vaginal bleeding, unspecified (principal); D25.9 Leiomyoma of uterus, unspecified
CPT/HCPCS: 99213

== ENCOUNTER → 2025-05-28 11:58 | Outpatient (BNVA) | payer OTHER, SELFPAY | PROVIDERS: PCP Internal Medicine; Visit Provider Obstetrics & Gynecology | DX: N93.9 Abnormal uterine and vaginal bleeding, unspecified (principal); D25.9 Leiomyoma of uterus, unspecified | CPT/HCPCS: 99212 ==